=== PATIENT | male | born 1960 | race Caucasian/White ===

== ENCOUNTER → 2017-10-14 14:24 | Outpatient (CLI) | payer BC, SELFPAY ==
--- NOTE | 2017-10-14 14:26 | CA_ITS ---
PROCEDURE: 2-D M-mode and color Doppler study INDICATIONS FOR THE TEST: Chest pain COPD+ Heart Murmur Tobacco Smoking+ Palpitations Fatigue Syncope Edema Hypertension+Diabetes Mellitus Rheumatic Fever SOB WARD Obesity Hyperlipidemia Family History HD Additional History DIZZINESS, AFIB, CAD PATIENT INFORMATION HEIGHT: 71 WEIGHT:183 GENDER: Male B/P:125/72 2-D/M-MODE INTERPRETATION: 2-D MEASUREMENTS OBSERVED VALUES IN CMS Right Ventricular Dimension (RVDd) 2.8 Interventricular Septum (Thickness)(IVsd) 1.4 Left Ventricular Internal Dimensions(LVIDd) 5.1 Left Ventricular Posterior Wall (Thickness)(LVPWd) 1.2 Aortic Root 4.3 Aortic Cusp Separation 1.0 Left Atrial Dimensions (LAD) 4.6 2D 1. Left atrium is moderately enlarged, left ventricle is normal size, mild concentric left ventricular hypertrophy, visually estimated ejection fraction 50% with no obvious regional wall motion abnormality. 2. The right atrium and right ventricle are mildly enlarged with normal contractility. 3. The aortic valve is thickened and calcified, the leaflet morphology is not well visualized, its likely bicuspid aortic valve. There is restriction the leaflet mobility. 4. The mitral and tricuspid valve are grossly normal. 5. The pulmonic valve is poorly visualized. 6. No significant pericardial effusion noted. DOPPLER INTERROGATION: 1. The maximum aortic out flow velocity across the stented 2.5 m/s, resulting in a mean gradient across valve of 14 mmHg represents mild aortic stenosis, there is mild aortic insufficiency present. 2. The mitral inflow velocity within normal range, there is no mitral stenosis, there is mild mitral regurgitation seen, there is mild tricuspid regurgitation seen, tricuspid and jet velocity insufficient for calculation of the right ventricular systolic pressure, diastolic parameters are inconclusive. CONCLUSION: 1. Mildly enlarged left atrium, normal left ventricular size, mild concentric left ventricular hypertrophy, visually estimated ejection fraction 50% with no obvious regional wall motion abnormality. 2. Likely bicuspid aortic valve with mild stenosis and mild aortic insufficiency, if clinically indicated transesophageal echocardiogram is recommended for further evaluation. 3. Mild mitral and tricuspid regurgitation 4. No significant pericardial effusion noted.
== END ==
PROVIDERS: Family Provider Nurse Practitioner; PCP Family Medicine; Visit Provider Internal Medicine
DX: I77.810 Thoracic aortic ectasia (principal); I10 Essential (primary) hypertension
CPT/HCPCS: 93306

== ENCOUNTER → 2017-12-15 13:02 | Outpatient (CLI) | payer BC, SELFPAY ==
[2017-12-15 14:47] LABS: Anion Gap 17.3 mEq/L (5-15); Blood Urea Nitrogen 12 mg/dL (7-18); Calcium 8.9 mg/dL (8.5-10.1); Carbon Dioxide 25 mmol/L (21.0-32.0); Chloride 106 mmol/L (98-107); Creatinine,Serum 1.17 mg/dL (0.70-1.30); Estimated Glomerular Filt Rate 65 ml/min (>60); GFR (African American) 78 ML/MIN (>60); Glucose 160 mg/dL (74-106); Potassium 3.3 mmoL/L (3.5-5.1); Sodium 145 mmol/L (136-145)
== END ==
PROVIDERS: Family Provider Nurse Practitioner; PCP Family Medicine; Visit Provider Internal Medicine
DX: I10 Essential (primary) hypertension (principal); I35.1 Nonrheumatic aortic (valve) insufficiency; I71.4 Abdominal aortic aneurysm, without rupture; I77.810 Thoracic aortic ectasia; I77.89 Other specified disorders of arteries and arterioles
CPT/HCPCS: 36415; 80048

== ENCOUNTER → 2018-08-23 06:13 | Outpatient (CLI) | payer BC, SELFPAY ==
--- NOTE | 2018-08-23 06:29 | CT_ITS ---
CT chest w con HISTORY: Chest pain, mid chest pain ITS.REASON: z ORDERING PHYSICIAN: Anton Jensen MD PATIENT AGE: 57 years COMPARISON: 09/06/2017 TECHNIQUE: Axial images obtained following the administration of 75 mL of Optiray 350 . Sagittal, and coronal reformatted images are also generated and reviewed. All CT scans at the facility use one or more dose reduction, viz: automated exposure control, ma/kV adjustment per patient size (including targeted exams where dose is matched to indication, i.e. head), or iterative reconstruction technique. FINDINGS: There are a few small mediastinal lymph nodes. No enlarged nodes are evident. There is mild fusiform dilatation of the ascending aorta at 4.6 cm similar to the previous exam. No evidence of aortic dissection. No evidence of central pulmonary embolus. There are coronary artery calcifications present and there is some calcification of the aortic root along the left lateral aspect. Normal heart size without evidence of pericardial effusion. No suspicious pulmonary nodules. No infiltrates or effusions. Mild degenerative changes thoracic spine. There are scattered isodense lesions within the liver which may represent hepatic cysts. IMPRESSION: 1. Overall stable CT appearance of the chest. 2. Mild fusiform aneurysmal dilatation of the ascending aorta at 4.6 cm without evidence of dissection not significantly changed. 3. Coronary artery calcifications are noted.
--- NOTE | 2018-08-23 06:29 | NM_ITS ---
CARDIOLITE SPECT MYOCARDIAL PERFUSION LEXISCAN, REST AND STRESS: [facility] REVIEW QGS EF AND WALL MOTION EVALUATION: QPS - PERFUSION EVALUATION HISTORY: c.p., sob, aaa DOSE: 10.91 mCi technetium 99m mibi intravenously at rest followed by 31.2 mCi technetium 99m mibi following the intravenous ministration of 0.4 mg of Lexiscan. Resting blood pressure is 168/102. Stress blood pressure 146/93. FINDINGS: Ejection fraction is calculated to be 58%. Uniform myocardial activity with both stress and rest IMPRESSION: No scintigraphic evidence of Lexiscan-induced myocardial ischemia with normal ejection fraction normal wall motion
--- NOTE | 2018-08-23 08:23 | HMH.ITSHM ---
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 []HYDROCHLOROTHIAZIDE BISOPROLOL AMLODIPINE LISINOPRIL
== END ==
PROVIDERS: PCP Family Medicine; Visit Provider Internal Medicine Cardiovascular Disease
DX: R06.02 Shortness of breath (principal); R07.9 Chest pain, unspecified; I35.1 Nonrheumatic aortic (valve) insufficiency; I71.2 Thoracic aortic aneurysm, without rupture
CPT/HCPCS: 71260; 78452; 93017; A9502; J2785; Q9967

== ENCOUNTER → 2018-09-07 13:14 | Outpatient (CLI) | payer BC, SELFPAY | PROVIDERS: PCP Family Medicine; Visit Provider Internal Medicine Cardiovascular Disease | DX: G47.33 Obstructive sleep apnea (adult) (pediatric) (principal); I10 Essential (primary) hypertension; I25.10 Atherosclerotic heart disease of native coronary artery without angina pectoris; I34.0 Nonrheumatic mitral (valve) insufficiency; I35.0 Nonrheumatic aortic (valve) stenosis; I35.1 Nonrheumatic aortic (valve) insufficiency; I71.4 Abdominal aortic aneurysm, without rupture; I77.810 Thoracic aortic ectasia; I77.89 Other specified disorders of arteries and arterioles; R06.83 Snoring; R40.0 Somnolence; R53.83 Other fatigue | CPT/HCPCS: 95806 ==

== ENCOUNTER → 2018-09-22 10:23 | Outpatient (CLI) | payer BC, SELFPAY ==
[2018-09-22 11:55] LABS: Anion Gap 16.8 mEq/L (5-15); Blood Urea Nitrogen 15 mg/dL (7-18); Calcium 8.9 mg/dL (8.5-10.1); Carbon Dioxide 26 mmol/L (21.0-32.0); Chloride 105 mmol/L (98-107); Creatinine,Serum 1.08 mg/dL (0.70-1.30); Estimated Glomerular Filt Rate 71 ml/min (>60); GFR (African American) 86 ML/MIN (>60); Glucose 113 mg/dL (74-106); Potassium 3.8 mmoL/L (3.5-5.1); Sodium 144 mmol/L (136-145)
== END ==
PROVIDERS: Physician Assistant; Visit Provider Internal Medicine Cardiovascular Disease
DX: I10 Essential (primary) hypertension (principal)
CPT/HCPCS: 36415; 80048

== ENCOUNTER → 2019-02-14 07:42 | Outpatient (CLI) | payer BC, SELFPAY ==
--- NOTE | 2019-02-14 07:47 | XR_ITS ---
PROCEDURE: XR SHOULDER LT MIN 2V CLINICAL INDICATION: ACUTE LT SHOULDER PAIN COMPARISON: No exams were available for comparison FINDINGS: No fracture, dislocation, lytic change, or blastic change evident. No significant degenerative change IMPRESSION: Negative left shoulder Dictated by: Emory Thibodeaux MD 02/14/2019 11:34 Electronically signed by Emory Thibodeaux MD in [place] 02/14/2019 11:34
--- NOTE | 2019-02-14 08:00 | US_ITS ---
PROCEDURE: US ABDOMEN COMPLETE CLINICAL INDICATION: RT SIDE ABD PAIN Right-sided abdominal pain COMPARISON: CT ABDOMEN PELVIS W CON from 02/05/2019 FINDINGS: PANCREAS: The LIVER: Appears somewhat coarse heterogeneous echogenicity of the liver nonspecific. Hepatic cysts are present as noted on the CT scan. Only 3 however are demonstrated by ultrasound. The these measure a approximately 1 cm. There is appropriate direction of blood flow within a non dilated portal vein. RIGHT KIDNEY: Unremarkable. Normal size and echogenicity. No hydronephrosis LEFT KIDNEY: Unremarkable. Normal size and echogenicity. No hydronephrosis GALLBLADDER: The gallbladder is contracted with a thickened wall measuring up to 4 mm. No pericholecystic fluid or biliary dilatation is evident. Common bile duct is 3 mm. There may be a small polyp along the posterior wall of the gallbladder AORTA: No evidence of aneurysmal dilatation. SPLEEN: Borderline splenomegaly at 13 cm ASCITES: None demonstrated. IMPRESSION: Contracted gallbladder with slightly thickened wall with possible small polyp. Hepatic cysts Dictated by: Emory Thibodeaux MD 02/14/2019 16:15 Electronically signed by Emory Thibodeaux MD in [place] 02/14/2019 16:15
== END ==
PROVIDERS: PCP Family Medicine; Visit Provider Family Medicine
DX: R10.9 Unspecified abdominal pain (principal); M25.512 Pain in left shoulder
CPT/HCPCS: 73030; 76700

== ENCOUNTER → 2019-03-02 09:03 | Outpatient (CLI) | payer BC, SELFPAY ==
--- NOTE | 2019-03-02 09:15 | NM_ITS ---
PROCEDURE: NM HEPATOBILIARY W PHARM CLINICAL INDICATION: THICKENING OF WALL OF GALLBLADDER COMPARISON: No exams were available for comparison TECHNIQUE: 8.29 mCi of technetium 9 9 M Choletec was injected DOSE: 2.3 mcg of CCK was utilized for the ejection fraction FINDINGS: Homogeneous activity is present within the hepatic parenchyma. Activity is present in the gallbladder by 10 minutes. Activity is present in the small bowel by 30 minutes. The gallbladder ejection fraction is calculated to be 92 percent. CCK-The patient did not report pain or other symptoms during CCK infusion. IMPRESSION: Normal study with normal ejection fraction Dictated by: Dr. Collin Rod MD 03/02/2019 10:[address] Collin Rod MD in [place] 03/02/2019 10:48
--- NOTE | 2019-03-02 09:30 | HMH.ITSHM ---
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 []TRIAMTERENE LISINOPRIL BISOPROLOL AMLODIPINE
== END ==
PROVIDERS: PCP Family Medicine; Visit Provider Family Medicine
DX: K82.8 Other specified diseases of gallbladder (principal)
CPT/HCPCS: 78227; A9537; J2805

== ENCOUNTER → 2019-05-21 11:10 | Outpatient (POV) | payer BC, SELFPAY | PROVIDERS: PCP Family Medicine; Visit Provider Nurse Practitioner Family | DX: Z00.00 Encounter for general adult medical examination without abnormal findings (principal) ==

== ENCOUNTER 2019-12-02 13:29 | Emergency (ER) | payer BC, SELFPAY ==
[2019-12-02 13:40] VITALS: BP 141/102; PULSE 77; RESP 20; TEMP 37; O2SAT 98; BMI 32.6
[2019-12-02 13:51] LABS: UTC Influenza A Antigen Negative (Negative); UTC Influenza B Antigen Negative (Negative)
--- NOTE | 2019-12-02 14:09 | HMH.EDUTC ---
[facility] [place] Disposition Clinical Impression: Viral syndrome Sinusitis Qualifiers: Sinusitis location: unspecified location Chronicity: acute Recurrence: non-recurrent Qualified Code(s): J01.90 - Acute sinusitis, unspecified Disposition: Home, Self-Care Condition on Discharge: Good Instructions: Sinusitis, DI for Sinusitis, Preventing the Spread of Coronavirus Discharge Instructions Additional Instructions: Drink plenty of fluids. Take tylenol or ibuprofen for pain or fever. Take the medications as directed. Follow up with your regular doctor. GO TO THE ER FOR ANY WORSENING SYMPTOMS FOLLOW THE DIRECTIONS ON THE COVID-19 HAND OUT THAT WE GAVE YOU REGARDING SELF-ISOLATION UNTIL YOU KNOW YOUR COVID-19 RESULTS Prescriptions: Azithromycin [Z-Stephen 250mg Tab*] 250 mg PO UD DOSE PK #6 tab Transmission Status: Received by [email or web address] #[id number] Referrals: Maykel Salinas MD [Primary Care Provider] - Forms: Work/School Release Time of Disposition: 14:14 Medical Decision Making - Medical Records Medical records reviewed: No: I reviewed the patient's medical records. - Andrey Inquiry Pt receiving controlled substance: No Vital Signs: 12/02/19 13:40 12/02/19 14:17 Temperature 98.6 F 98.6 F Temperature Source Oral Pulse Rate 77 Pulse Rate [Right Brachial] 77 Respiratory Rate 20 20 Blood Pressure 141/102 H Blood Pressure [Right Arm] 141/102 H Blood Pressure Mean [Right Arm] 115 Blood Pressure Source [Right Arm] Automatic Cuff Blood Pressure Position [Right Arm] Sitting 02 Sat by Pulse Oximetry 98 Oxygen Delivery Method Room Air - Lab Data Lab results reviewed: Yes: I reviewed the patient's lab results. Lab Results 12/02/19 13:40: Influenza Type A Ag Negative, Influenza Type B Ag Negative Orders (Tests/Meds): ORDERS Category Date Time Status Covid-19 Nasal PCR Sendout [facility] Stat [facility] 12/02/19 13:50 Received Covid-19 Nasal PCR Sendout [facility] Routine Lab 12/02/19 13:50 Received [facility] [place] HPI - General Stated complaint: muscle pain, chills, headache Time Seen by Provider: 12/02/19 13:45 Mode of Arrival: Ambulatory Source of Information: Patient Limitations: No Limitations Description of Symptoms (Recalled from Triage Doc. by RN): PATIENT C/O BODY ACHES, RUNNY NOSE X 3 DAYS HEENT Symptoms (Recalled from RN notes): Yes Resp Symptoms (Recalled from RN notes): No Skin Symptoms (Recalled from RN notes): No MS Symptoms (Recalled from RN notes): Yes Functional Status (Recalled from RN notes): WNL - History of Present Illness Provider Complaint: He c/o chilling, feeling bad, having a dry cough for the past 1 day. He works a [employer]. He doesn't think that he has been exposed to COVID-19, but he has been around people at work. - Related Data Previous Rx's Medication Instructions Recorded amlodipine 10 mg tablet 10 mg PO DAILY #30 tab 12/14/18 triamterene 37.5 1 tab PO DAILY #90 tab 12/14/18 mg-hydrochlorothiazide 25 mg tablet lisinopril 40 mg tablet 40 mg PO DAILY #30 tab 06/04/19 bisoprolol fumarate 10 mg tablet 20 mg PO DAILY #60 tab 06/07/19 Azithromycin [Z-Stephen 250mg Tab*] 250 mg PO UD DOSE PK #6 tab 12/02/19 Allergies Allergy/AdvReac Type Severity Reaction Status Date / Time No Known Allergies Allergy Verified 03/19/19 13:28 - Worker's Comp Is this a Worker's Comp case?: No [facility] History - Hepatitis A Screen Drug use history?: No High risk sexual behaviors?: No History of sexually transmitted infection?: No Currently employed?: No Childcare worker?: No Do you have indoor plumbing?: Yes Do you have electricity?: Yes Attestation statement:: This patient has been screened for Hepatitis A risk factors. I have reviewed the patient's past medical history: Yes Medical History: Reports:: Anxiety, Depression, Hyperlipidemia, Hypertension, Kidney Stones Denies:: Cancer, Diabetes Mellitus Type 1, Diabetes Mellitus Type 2, Seizures Other Medical History: Repor
[2019-12-02 14:17] VITALS: BP 141/102; PULSE 77; RESP 20; TEMP 37; O2SAT 98
[2019-12-03 10:03] LABS: Covid-19 Nasal PCR Sendout UK NOT DETECTED
== END 2019-12-02 14:20 | disposition home or self-care (01) ==
PROVIDERS: Emergency Provider Nurse Practitioner Family; PCP Family Medicine
DX: J01.90 Acute sinusitis, unspecified (principal); B34.9 Viral infection, unspecified; Z20.828 Contact with and (suspected) exposure to other viral communicable diseases; I10 Essential (primary) hypertension; E78.5 Hyperlipidemia, unspecified; F41.8 Other specified anxiety disorders; Z87.442 Personal history of urinary calculi; Z79.899 Other long term (current) drug therapy
CPT/HCPCS: 87804; 99202; U0003; U0004

== ENCOUNTER → 2020-04-25 07:36 | Outpatient (CLI) | payer BC, SELFPAY ==
--- NOTE | 2020-04-25 07:36 | CA_ITS ---
APPROVED REPORT EXAM: Comprehensive 2D, Doppler, and color-flow Echocardiogram Mixer And Scaler: Doreen Shore CRT Ht: 5 ft 11 in Wt: 183lbs BSA: 2.03 BP: 110/70 mmHg Indications: Shortness of Breath, BAV, KEILA 2018, AFIB, CAD, WU, AAA COPD, Diabetes, Hyperlipidemia, Hypertension/HDD 2D Dimensions LVOT 1.72 cm (M/F) 1.5-2.5 M-Mode Dimensions RVDd 3.62 cm (0.9-2.6) LA Diam 4.04 cm (1.9-4.0) LVDd 6.48 cm (3.5-5.7) Ao Diam 3.84 cm (2.0-3.7) LVDs 5.37 cm (3.5-5.7) IVSd 1.74 cm (0.6-1.1) PWd 0.94 cm (0.6-1.1) EF (Teich) 35.00% FS 17.10% EDV (Teich) 214.50 mL ESV (Teich) 139.50 mL LV Diastology E Decel Time 417.00 (160-240 msec) E/A Ratio 1.31 MED E' 7.10 (< 7 cm/sec) MED A' 7.40 cm/s E'/MED E' Ratio 12.56 (>14) LAT E' 5.80 (<10 cm/sec) LAT A' 9.40 cm/s E/LAT E' Ratio 15.38 (>14) Aortic Valve LVOT Max 141.00 (70-110 cm/s) LVOT VTI 32.25 cm AoV Peak Pedro. 225.00 (50-130 cm/s) AO Peak GR. 20.20 mmHg AO Mean GR. 11.20 (<5 mmHg) AO VTI 47.49 (18-25 cm) AGGIE (VTI) 1.58 (2.5-4.5 cm2) Mitral Valve MV E Max Pedro. 89.00 (40-130 cm/s) MV A Velocity 68.00 (40-130 cm/s) E/A Ratio 1.31 MV Decel. Time 417.00 (160-240 ms) MV PHT 122.00 ms Pulmonary Valve PV Peak Velocity 115.00 (50-150 cm/s) Tricuspid Valve TR P. Velocity 237.00 cm/s RAP Estimate 10.00 mmHg RVSP 32.50 mmHg Left Ventricle Left atrium is mildly enlarged, left ventricle is normal size, left ventricle wall thickness is upper limit of normal, there is preserved left ventricular systolic function, visually estimated ejection fraction 55% with no regional wall motion abnormality. Grade 1 diastolic dysfunction seen without tissue Doppler evidence of raise left atrial pressure. Right Ventricle Right atrium and right ventricle are mildly enlarged with normal contractility. Aortic Valve Aortic valve leaflets are not well visualized, it appears to be bicuspid, the mean gradient across valve is 12 mmHg, represents mild aortic stenosis, there is no significant aortic insufficiency. Mitral Valve Mitral valve leaflets are grossly normal, there is mild mitral regurgitation. Tricuspid Valve Tricuspid valve grossly normal, there is mild tricuspid regurgitation. Tricuspid regurgitation jet velocity is inadequate for calculation of the right ventricular systolic pressure. Pulmonic Valve Pulmonic valve is poorly visualized. Great Vessels Aortic root is normal size, ascending aorta above sinotubular junction is enlarged measuring 4.1 cm. Pericardium No significant pericardial effusion noted. Conclusion 1. Mild biatrial enlargement, normal left ventricular size, visually estimated ejection fraction 55% with no regional wall motion abnormality, grade 1 diastolic dysfunction seen without tissue Doppler evidence of raise left atrial pressure. 2. Likely bicuspid aortic valve with mild aortic stenosis, there is no aortic insufficiency, ascending aorta above sinotubular junction is enlarged measuring 4.1 cm. 3. Mildly enlarged right ventricle with normal contractility. 4. Mild mitral and tricuspid regurgitation. 5. No significant pericardial effusion noted. Electronically signed by : Anton Jensen, 04/25/2020 10:30:45
[2020-04-25 09:03] LABS: Basophils # 0.1 K/mm3 (0-0.2); Basophils % 0.9 % (0.1-2.0); Eosinophils # 0.3 K/mm3 (0.0-0.4); Eosinophils % 3.6 % (0.1-12.0); Hematocrit 53.2 % (42.0-52.0); Lymphocytes # 1.6 K/mm3 (0.7-4.5); Lymphocytes % 22.9 % (10-50); Mean Corpuscular HGB Conc 34.2 g/dL (31.8-35.4); Mean Corpuscular Hemoglobin 31.2 pg (27.0-31.2); Mean Corpuscular Volume 91.4 fl (80-94); Mean Platelet Volume 9.1 fl (7.4-10.4); Monocytes # 0.4 K/mm3 (0.1-1.0); Neutrophils # 4.6 K/mm3 (1.8-7.8); Neutrophils % 66.6 % (37.0-80.0); Platelet Count 258 K/mm3 (142-424); Red Blood Count 5.81 M/mm3 (4.60-6.20); Red Cell Distribution Width 13.2 % (11.5-17.5); White Blood Count 6.9 K/mm3 (4.8-10.8)
[2020-04-25 10:57] LABS: Chloride 106 mmol/L (98-107); Potassium 4.5 mmoL/L (3.5-5.1); Sodium 142 mmol/L (136-145)
[2020-04-25 10:59] LABS: Bilirubin,Unconjugated 0.6 mg/dL (0.0-1.1); Blood Urea Nitrogen 19 mg/dl (9-20); Estimated Glomerular Filt Rate 77 ml/min (>60); GFR (African American) 93 ML/MIN (>60)
[2020-04-25 11:00] LABS: Alanine Aminotransferase 30 U/L (12-78); Albumin Level 4.6 g/dl (3.5-5.0); Alkaline Phosphatase 102 U/L (38-126); Anion Gap 12.5 mEq/L (5-15); Aspartate Amino Transferase 24 U/L (17-59); Bilirubin,Direct 0.2 mg/dl (0.0-0.4); Bilirubin,Indirect 0.6 mg/dL (0.0-0.9); Bilirubin,Total 0.8 mg/dl (0.2-1.3); Calcium 9.9 mg/dl (8.4-10.2); Carbon Dioxide 28 mmol/L (22.0-30.0); Chol/HDL Ratio 4.7 (1-3.5); Cholesterol 203 mg/dl (140-200); Glucose 105 mg/dl (74-100); HDL Cholesterol 43 mg/dl (40-60); Total Protein,Serum 7.5 g/dl (6.3-8.2); Triglycerides 213 mg/dl (30-150); VLDL Cholesterol 43 mg/dL (0-40)
[2020-04-25 11:11] LABS: Direct LDL Cholesterol 133.24 mg/dL (100-129); Hemoglobin 18.2 g/dL (14.1-18.0)
== END ==
PROVIDERS: PCP Family Medicine; Visit Provider Urology
DX: I34.0 Nonrheumatic mitral (valve) insufficiency (principal); I35.0 Nonrheumatic aortic (valve) stenosis; I71.4 Abdominal aortic aneurysm, without rupture; I10 Essential (primary) hypertension
CPT/HCPCS: 36415; 80048; 80061; 80076; 85025; 93306

== ENCOUNTER 2020-05-06 13:30 | Outpatient (CLI) | payer BC, SELFPAY ==
[2020-05-06 14:19] LABS: Basophils # 0.1 K/mm3 (0-0.2); Basophils % 0.7 % (0.1-2.0); Eosinophils # 0.3 K/mm3 (0.0-0.4); Eosinophils % 4.1 % (0.1-12.0); Hematocrit 51.1 % (42.0-52.0); Hemoglobin 17.4 g/dL (14.1-18.0); Lymphocytes # 1.8 K/mm3 (0.7-4.5); Lymphocytes % 22.3 % (10-50); Mean Corpuscular HGB Conc 34.1 g/dL (31.8-35.4); Mean Corpuscular Hemoglobin 31.3 pg (27.0-31.2); Mean Corpuscular Volume 91.8 fl (80-94); Mean Platelet Volume 8.9 fl (7.4-10.4); Monocytes # 0.5 K/mm3 (0.1-1.0); Monocytes % 5.8 % (1.7-9.3); Neutrophils # 5.3 K/mm3 (1.8-7.8); Neutrophils % 67.1 % (37.0-80.0); Platelet Count 229 K/mm3 (142-424); Red Blood Count 5.57 M/mm3 (4.60-6.20); Red Cell Distribution Width 12.7 % (11.5-17.5); White Blood Count 7.9 K/mm3 (4.8-10.8)
[2020-05-06 14:48] VITALS: BP 146/99; PULSE 64; RESP 18
--- NOTE | 2020-05-06 14:48 | PC.NURSE ---
1448-pt was here for labs and therapeutic phlebotomy; pt;s hgb 17.4; pt had 250ml phlebotomized off.
== END 2020-05-06 14:48 | disposition home or self-care (01) ==
LOC: INF 15:05
PROVIDERS: Visit Provider Urology
DX: D45 Polycythemia vera (principal)
CPT/HCPCS: 85025; 99195

== ENCOUNTER → 2020-05-09 07:46 | Outpatient (CLI) | payer BC, SELFPAY ==
--- NOTE | 2020-05-09 07:46 | CA_ITS ---
APPROVED REPORT Lobster Catcher: Tiffanie Bullard RVT Study Quality: Good Indications: malignant htn/polycythemia Risk Factors Hypertension Renal Artery Doppler Origin (R) 115.6/ cm/sec Proximal (R) 112.2/ cm/sec Mid (R) 92.5/ cm/sec Distal (R) 117.0/ cm/sec Renal Aorta Ratio (R) 0.97 Segmental A. (R) 36.2/16.4 cm/sec RI: 0.54 Segmental A. Sup (R) 35.1/15.4 cm/sec Segmental A. Mid (R) 36.2/16.4 cm/sec Segmental A. Inf (R) 23.8/5.2 cm/sec Origin (L) 95.4/ cm/sec Proximal (L) 98.8/ cm/sec Mid (L) 115.6/ cm/sec Distal (L) 74.1/ cm/sec Renal Aorta Ratio (L) 0.78 Segmental A. (L) 40.2/15.4 cm/sec RI: 0.61 Segmental A. Sup (L) 34.2/21.4 cm/sec Segmental A. Mid (L) 30.8/18.0 cm/sec Segmental A. Inf (L) 40.2/15.4 cm/sec Renal Measurements Kidney Size (R) 12.1x5.8 cm Cortical Thickness (R) 1.8 cm Kidney Size (L) 13.1x7.5 cm Cortical Thickness (L) 2.2 cm Findings Study suggests no evidence of stenosis of the bilateral renal arteries. Conclusion Study suggests no evidence of stenosis of the bilateral renal arteries. Electronically signed by : Emory Thibodeaux MD 05/09/2020 16:47:18
--- NOTE | 2020-05-09 08:33 | US_ITS ---
PROCEDURE: US KIDNEY CLINICAL INDICATION: I10 - Essential (primary) hypertension COMPARISON: US CA RENAL ARTERY DUPLEX from 05/09/2020 FINDINGS: The right kidney is [id number]. No hydronephrosis, cortical thinning, or renal mass or perinephric fluid collection is evident. The left kidney is [id number]. No hydronephrosis, cortical thinning, or renal mass or perinephric fluid collection is evident. No renal mass evident. The there is a small hyperechoic focus in the upper pole of the left kidney and may be due to small stone. Incidental note is made of a small hepatic cyst in the left hepatic lobe at 13 mm. IMPRESSION: No hydronephrosis. Possible left nephrolithiasis. Dictated by: Emory Thibodeaux MD 05/09/2020 17:11 Emory Thibodeaux MD in [place] 05/09/2020 17:11
== END ==
LOC: RT 07:46
PROVIDERS: PCP Family Medicine; Visit Provider Urology
DX: D45 Polycythemia vera (principal); I10 Essential (primary) hypertension; I25.10 Atherosclerotic heart disease of native coronary artery without angina pectoris; I34.0 Nonrheumatic mitral (valve) insufficiency; I35.0 Nonrheumatic aortic (valve) stenosis; I71.4 Abdominal aortic aneurysm, without rupture; G47.33 Obstructive sleep apnea (adult) (pediatric); Z99.89 Dependence on other enabling machines and devices
CPT/HCPCS: 76770; 93976

== ENCOUNTER → 2020-06-06 10:50 | Outpatient (CLI) | payer BC, SELFPAY ==
[2020-06-06 11:41] LABS: Basophils % 0.5 % (0.1-2.0); Eosinophils # 0.3 K/mm3 (0.0-0.4); Eosinophils % 3.7 % (0.1-12.0); Hematocrit 44.2 % (42.0-52.0); Hemoglobin 14.7 g/dL (14.1-18.0); Lymphocytes # 2.1 K/mm3 (0.7-4.5); Mean Corpuscular HGB Conc 33.2 g/dL (31.8-35.4); Mean Corpuscular Hemoglobin 30.6 pg (27.0-31.2); Mean Corpuscular Volume 92.1 fl (80-94); Mean Platelet Volume 8.1 fl (7.4-10.4); Monocytes # 0.7 K/mm3 (0.1-1.0); Neutrophils % 61.7 % (37.0-80.0); Platelet Count 276 K/mm3 (142-424); Red Cell Distribution Width 12.9 % (11.5-17.5); White Blood Count 8.2 K/mm3 (4.8-10.8)
[2020-06-06 11:55] LABS: Anion Gap 13.9 mEq/L (5-15); Blood Urea Nitrogen 17 mg/dl (9-20); Calcium 9.3 mg/dl (8.4-10.2); Carbon Dioxide 24 mmol/L (22.0-30.0); Chloride 106 mmol/L (98-107); Estimated Glomerular Filt Rate 87 ml/min (>60); GFR (African American) 105 ML/MIN (>60); Glucose 154 mg/dl (74-100); Potassium 3.9 mmoL/L (3.5-5.1); Sodium 140 mmol/L (136-145)
== END ==
PROVIDERS: Visit Provider Urology
DX: D45 Polycythemia vera (principal); I10 Essential (primary) hypertension
CPT/HCPCS: 36415; 80048; 85025

== ENCOUNTER 2021-01-02 13:27 | Emergency (ER) | payer BC, SELFPAY ==
[2021-01-02 13:45] VITALS: BP 180/110; PULSE 89; RESP 18; TEMP 37.7; O2SAT 95; BMI 32.5
[2021-01-02 14:15] VITALS: BP 168/114; PULSE 89; RESP 18; TEMP 37.7; O2SAT 97; BMI 32.5
[2021-01-02 14:22] LABS: Coronavirus 19, PCR Not Detected (NotDetected); Influenza A, PCR Not Detected (NotDetected); Influenza B, PCR Not Detected (NotDetected)
--- NOTE | 2021-01-02 14:53 | HMH.EDUTC ---
[facility] [place] Clinical Impression: Viral syndrome Disposition: Home, Self-Care Condition on Discharge: Good Instructions: DI for Viral Syndrome, DI for Fever (Symptom) -- Adult, DI for COVID-19 (Suspected or Confirmed ), Preventing the Spread of Coronavirus Discharge Instructions Additional Instructions: *Monitor Temp, Over the counter Motrin or Tylenol as directed/as needed Tylenol every 4 hours and Motrin every 6 hours (as long as your family doctor has told you that you can take it) for fever or pain. and straight to ER if unable to lower temp less than 101.0 after medication given *Warm salt water gargles may help to soothe the throat *Throat Lozenges *Warm fluids like tea with honey may help to soothe the throat *Sleep elevated *Humidifier/Vaporizer Follow up IMMEDIATELY for new or worsening symptoms or no Noticeable improvement over the next 48-72 hours. 911 for difficulty breathing or swallowing You were tested for today for COVID19 your test result should be back in the next 24-48 hours, you was given handout for instructions on how to log onto the [facility] portal to see your results if you have trouble logging on you may call for your results You was given a handout with instructions for Self Quarantine and Self isolation for while you wait on test results and what to do if they are positive If you are positive the Health Dept will be contacting you also Make sure to take your Vitamins Vit. C Vit D and Zinc if you can take them Referrals: Maykel Salinas MD [Primary Care Provider] - As needed Forms: Work/School Release Time of Disposition: 15:00 Medical Decision Making - Andrey Inquiry Pt receiving controlled substance: No Andrey was queried for this patient: No Vital Signs: 01/02/21 13:45 01/02/21 14:15 01/02/21 15:01 Temperature 99.9 F H 99.9 F H 99.9 F H Temperature Source Oral Oral Pulse Rate 85 Pulse Rate [Right Radial] 89 89 Respiratory Rate 18 18 18 Blood Pressure 148/108 H Blood Pressure [Left Arm] 180/110 H 168/114 H Blood Pressure Mean [Left Arm] 133 132 Blood Pressure Source [Left Arm] Automatic Cuff Blood Pressure Position [Left Arm] Sitting 02 Sat by Pulse Oximetry 95 97 Oxygen Delivery Method Room Air - Lab Data Lab results reviewed: Yes: I reviewed the patient's lab results. Lab Results 01/02/21 14:10: SARS-CoV-2 (PCR) Not detected, Influenza A Untype (PCR) Not detected, Influenza Type B (PCR) Not detected 01/02/21 14:59: Influenza Type A Ag Negative, Influenza Type B Ag Negative [facility] [place] HPI - General Stated complaint: chills, body aches, H/A, fever Time Seen by Provider: 01/02/21 14:53 Mode of Arrival: Ambulatory Source of Information: Patient Limitations: No Limitations Description of Symptoms (Recalled from Triage Doc. by RN): PT C/O COLD SWEATS, HOT FLASHES, BODY ACHES AND LOSS OF ENERGY. HEENT Symptoms (Recalled from RN notes): No Resp Symptoms (Recalled from RN notes): No Skin Symptoms (Recalled from RN notes): No MS Symptoms (Recalled from RN notes): No Functional Status (Recalled from RN notes): COLD SWEATS, HOT FLASHES, BODY ACHES AND LETHARGY - History of Present Illness Provider Complaint: Patient states that he is fully vaccinated but concerned that he may have COVID and wanted to get tested States that he has been having chills, body aches, fever, and feeling tired States that had covid a month or so back State that today when he was still feeling bad he came in to get checked - Related Data Previous Rx's Medication Instructions Recorded amlodipine 10 mg tablet 10 mg PO BID #60 tab 05/06/20 atorvastatin 20 mg tablet See Rx Instructions .ROUTE 09/04/20 .COMPLEX #30 tab lisinopril 40 mg tablet See Rx Instructions .ROUTE 10/15/20 .COMPLEX #30 tab triamterene 37.5 See Rx Instructions .ROUTE 10/15/20 mg-hydrochlorothiazide 25 mg tablet .COMPLEX #30 tab bisoprolol fumarate 10 mg tablet See Rx Instructions .ROUTE 12/15/20 .COMPL
[2021-01-02 15:00] LABS: UTC Influenza A Antigen Negative (Negative)
[2021-01-02 15:01] VITALS: BP 148/108; PULSE 85; RESP 18; TEMP 37.7
[2021-01-02 15:01] LABS: UTC Influenza B Antigen Negative (Negative)
== END 2021-01-02 15:12 | disposition home or self-care (01) ==
LOC: ER 13:49 → UTC 13:50
PROVIDERS: Emergency Provider Nurse Practitioner; PCP Family Medicine
DX: B34.9 Viral infection, unspecified (principal); R52 Pain, unspecified; R50.9 Fever, unspecified
CPT/HCPCS: 87804; 99202; C9803; G0463; U0003; U0005

== ENCOUNTER 2021-01-04 12:39 | Observation (INO) | payer BC, SELFPAY ==
[2021-01-04] VITALS (11 sets, daily range): BP systolic 134–174; BP diastolic 86–116; PULSE 72–102; RESP 16–18; TEMP 37.4–38.2; O2SAT 93–95; BMI 32.5
--- NOTE | 2021-01-04 12:56 | XR_ITS ---
PROCEDURE INFORMATION: Exam: XR Chest Exam date and time: 01/04/2021 12:56 PM Age: 60 years old Clinical indication: Shortness of breath; Patient HX: SOB -- covid symptoms but covid test negative; Additional info: SOA TECHNIQUE: Imaging protocol: XR of the chest. Views: 2 views. COMPARISON: CR XR CHEST 2V 02/05/2019 7:34 PM FINDINGS: Lungs: Opacity in left lower lobe may represent pneumonia.. Pleural spaces: Unremarkable. No pleural effusion. No pneumothorax. Heart/Mediastinum: Unremarkable. No cardiomegaly. Bones/joints: Unremarkable. IMPRESSION: Opacity in left lower lobe may represent pneumonia..
--- NOTE | 2021-01-04 12:59 | CT_ITS ---
PROCEDURE INFORMATION: Exam: CTA Chest With Contrast Exam date and time: 01/04/2021 12:59 PM Age: 60 years old Clinical indication: Pain; Patient HX: Checking for pe-- chest pressure, SOB , covid symptoms but he tested negative TECHNIQUE: Imaging protocol: Computed tomographic angiography of the chest with contrast. 3D rendering (Not supervised by radiologist): MIP and/or 3D reconstructed images were created by the technologist. Radiation optimization: All CT scans at this facility use at least one of these dose optimization techniques: automated exposure control; mA and/or kV adjustment per patient size (includes targeted exams where dose is matched to clinical indication); or iterative reconstruction. Contrast material: ISOVUE 370; Contrast volume: 70 ml; Contrast route: INTRAVENOUS (IV); COMPARISON: CHESTW CT chest w con 08/23/2018 11:21 AM FINDINGS: Pulmonary arteries: Small pulmonary emboli in the left lower lobe: Filling defects in small branches to the left lower lobe. For example series 2, image 207, 211. Aorta: Unruptured aneurysm of the ascending aorta 4.6 x 4.5 cm Lungs: Consolidation in the left lower lobe may represent pneumonia and/or pulmonary infarction.. Pleural spaces: Unremarkable. No pneumothorax. No pleural effusion. Heart: Unremarkable. No cardiomegaly. No pericardial effusion. Lymph nodes: Unremarkable. No enlarged lymph nodes. Liver: Multi multiple simple cysts in the liver. Some lesions are too small to characterize Bones/joints: Unremarkable. No acute fracture. Soft tissues: Unremarkable. IMPRESSION: 1. Small pulmonary emboli in the left lower lobe: Filling defects in small branches to the left lower lobe. For example series 2, image 207, 211. 2. Consolidation in the left lower lobe may represent pneumonia and/or pulmonary infarction..
--- NOTE | 2021-01-04 13:01 | HMH.EDGENADL ---
ED Disposition Clinical Impression: Acute kidney injury Pneumonia Qualifiers: Pneumonia type: due to unspecified organism Laterality: left Lung location: unspecified part of lung Qualified Code(s): J18.9 - Pneumonia, unspecified organism Pulmonary embolism Qualifiers: Pulmonary embolism type: unspecified Chronicity: acute Acute cor pulmonale presence: without acute cor pulmonale Qualified Code(s): I26.99 - Other pulmonary embolism without acute cor pulmonale Disposition: Admitted As Inpatient Condition on Discharge: Good - Critical Care Critical Care Time: No Attestation: On 01/04/21, the high probability of a clinically significant, sudden or life threatening deterioration of the following system(s) required my full and direct attention, intervention and personal management. The time I documented below is in addition to time spent performing reported procedures but includes the following listed in this critical care notation. Medical Decision Making - Medical Records Medical records reviewed: Yes: I reviewed the patient's medical records. - Andrey Inquiry Pt receiving controlled substance: No Vital Signs: 01/04/21 12:41 Temperature 99.3 F Temperature Source Oral Pulse Rate [Left Radial] 102 H Respiratory Rate 18 Blood Pressure [Right Arm] 136/113 H Blood Pressure Mean [Right Arm] 120 Blood Pressure Source [Right Arm] Automatic Cuff Blood Pressure Position [Right Arm] Sitting 02 Sat by Pulse Oximetry 93 L Oxygen Delivery Method Room Air - Lab Data Lab Results 01/04/21 12:55: Chlamy pneumoniae PCR Not detected, Adenovirus (PCR) Not detected, B. pertussis DNA (PCR) Not detected, Coronavirus OC43 (PCR) Not detected, Coronavirus HKU1 (PCR) Not detected, Coronavirus 229E (PCR) Not detected, SARS-CoV-2 (PCR) Not detected, Coronavirus NL63 (PCR) Not detected, Human Metapneumovir PCR Not detected, Influenza A (H1) PCR Not detected, Influ A (H1N1/09) PCR Not detected, Influenza A (H3) PCR Not detected, Influenza Type A (PCR) Not detected, Influenza Type B (PCR) Not detected, M. pneumoniae (PCR) Not detected, Parainfluenza 1 (PCR) Not detected, Parainfluenza 2 (PCR) Not detected, Parainfluenza 3 (PCR) Not detected, Parainfluenza 4 (PCR) Not detected, RSV (PCR) Not detected, Entero/Rhino (PCR) Not detected 01/04/21 12:55: WBC 14.0 H, RBC 5.55, Hgb 17.6, Hct 51.7, MCV 93.3, MCH 31.7 H, MCHC 34.0, RDW 13.5, Plt Count 263, MPV 8.7, Neut % (Auto) 90.4 H, Lymph % (Auto) 4.5 L, [place]ona % (Auto) 3.7, Eos % (Auto) 0.8, Baso % (Auto) 0.6, Neut # (Auto) 12.7 H, Lymph # (Auto) 0.6 L, Monona # (Auto) 0.5, Eos # (Auto) 0.1, Baso # (Auto) 0.1, Total Counted 100, Neutrophils % (Manual) 88 H, Band Neutrophils % 2.0, Lymphocytes % (Manual) 8 L, Monocytes % (Manual) 2, Platelet Estimate Normal, RBC Morphology Normal 01/04/21 12:55: Sodium 136, Potassium 3.8, Chloride 99, Carbon Dioxide 24, Anion Gap 16.8 H, BUN 19, Creatinine 1.40 H, Estimated Creat Clear 89, Estimated GFR 52 L, Est GFR ( Amer) 63, Glucose 184 H, Calcium 9.5, Troponin I 0.01 01/04/21 14:15: Urine Color Clarke, Urine Appearance Clear, Urine pH 6.5, Ur Specific [place] 1.015, Urine Protein 3+, Urine Glucose (UA) Negative, Urine Ketones Negative, Urine Blood 1+, Urine Nitrate Negative, Urine Bilirubin 1+ A, Urine Urobilinogen 1.0, Ur Leukocyte Esterase Negative, Urine RBC 3-5, Urine WBC Occasional, Ur Squamous Epith Cells Occasional, Urine Bacteria Trace 01/04/21 14:55: Lactate 1.2 Result diagrams: 01/04/21 12:55 01/04/21 12:55 Orders (Tests/Meds): ED MEDICATIONS Generic Name Dose Route Start Last Admin Trade Name Freq PRN Reason Stop Dose Admin Ceftriaxone Sodium 1 gm/ 50 mls @ 100 mls/hr 01/04/21 14:45 01/04/21 15:01 Sodium Chloride IV 01/18/21 14:44 100 mls/hr Q24H MICHAEL Administration Lactated Ringer's 1,000 mls @ 125 mls/hr 01/04/21 14:45 01/04/21 15:01 Lactated Ringer's 1000 Ml Bag IV 02/03/21 14:44 125 mls/hr .Q8H MICHAEL Administration [place]
--- NOTE | 2021-01-04 13:02 | ECG_ITS ---
APPROVED REPORT Exam: Resting ECG HR:92 bpm ECG Measurements Heart Rate 92 AXES ND 144 P 32 QRSd 84 QRS -3 QT 388 T 66 QTc 479 Conclusion Normal sinus rhythm Normal ECG Electronically signed by : Maykel Garcia MD 01/06/2021 10:58:15
[2021-01-04 13:07] LABS: Adenovirus,PCR Not Detected (NotDetected); Bordetella Pertussis Not Detected (NotDetected); Chlamydophila Pneumoniae, PCR Not Detected (NotDetected); Coronavirus 19, PCR Not Detected (NotDetected); Coronavirus 229E Not Detected (NotDetected); Coronavirus NL63 Not Detected (NotDetected); Coronavirus OC43 Not Detected (NotDetected); Coronovirus HKU1,PCR Not Detected (NotDetected); Human Metapneumovirus Not Detected (NotDetected); Influenza A, PCR Not Detected (NotDetected); Influenza AH1, 2009 Not Detected (NotDetected); Influenza AH1, PCR Not Detected (NotDetected); Influenza AH3,PCR Not Detected (NotDetected); Influenza B, PCR Not Detected (NotDetected); Mycoplasma Pneumoniae, PCR Not Detected (NotDetected); Parainfluenza 1, PCR Not Detected (NotDetected); Parainfluenza 2, PCR Not Detected (NotDetected); Parainfluenza 3, PCR Not Detected (NotDetected); Parainfluenza 4, PCR Not Detected (NotDetected); Respiratory Syncytial Virus Not Detected (NotDetected); Rhinovirus/Enterovirus Not Detected (NotDetected)
[2021-01-04 13:09] LABS: Basophils # 0.1 K/mm3 (0-0.2); Basophils % 0.6 % (0.1-2.0); Eosinophils # 0.1 K/mm3 (0.0-0.4); Eosinophils % 0.8 % (0.1-12.0); Hematocrit 51.7 % (42.0-52.0); Hemoglobin 17.6 g/dL (14.1-18.0); Lymphocytes # 0.6 K/mm3 (0.7-4.5); Lymphocytes % 4.5 % (10-50); Mean Corpuscular Hemoglobin 31.7 pg (27.0-31.2); Mean Corpuscular Volume 93.3 fl (80-94); Mean Platelet Volume 8.7 fl (7.4-10.4); Monocytes # 0.5 K/mm3 (0.1-1.0); Monocytes % 3.7 % (1.7-9.3); Neutrophils # 12.7 K/mm3 (1.8-7.8); Neutrophils % 90.4 % (37.0-80.0); Platelet Count 263 K/mm3 (142-424); Red Blood Count 5.55 M/mm3 (4.60-6.20); Red Cell Distribution Width 13.5 % (11.5-17.5)
[2021-01-04 13:11] LABS: MANUAL DIFFERENTIAL MANUAL DIFFERENTIAL (MANUAL DIFF)
[2021-01-04 13:12] LABS: Chloride 99 mmol/L (98-107)
[2021-01-04 13:13] LABS: Potassium 3.8 mmoL/L (3.5-5.1); Sodium 136 mmol/L (136-145)
[2021-01-04 13:16] LABS: Anion Gap 16.8 mEq/L (5-15); Blood Urea Nitrogen 19 mg/dl (9-20); Calcium 9.5 mg/dl (8.4-10.2); Carbon Dioxide 24 mmol/L (22.0-30.0); Creatinine Clearance Estimated 89 mL/min (50-200); Estimated Glomerular Filt Rate 52 ml/min (>60); GFR (African American) 63 ML/MIN (>60); Glucose 184 mg/dl (74-100)
[2021-01-04 13:24] LABS: Lymphocytes % 8 % (10-50); Monocytes % 2 % (2-9); Neutrophils % 88 % (42-76); Platelet Estimate Normal; RBC Morphology Normal; Total Cells Counted 100
[2021-01-04 13:29] LABS: Troponin I 0.01 ng/ml (0.00-0.034)
[2021-01-04 14:26] LABS: Microscopic, Urine URINE MICROSCOPIC (MICROSCOPIC)
[2021-01-04 14:28] LABS: Appearance,Urine CLEAR (Clear); Blood, Urine 1+ (Negative); Color,Urine ORANGE (Yellow); Glucose,Urine (UA) Negative (Negative); Ketones,Urine Negative (Negative); Leukocyte Esterase,Urine Negative (Negative); Nitrate,Urine Negative (Negative); PH,Urine 6.5 (5.0-8.5); Protein,Urine 3+ (Negative); Specific Gravity, Urine 1.015 (1.005-1.030)
[2021-01-04 14:33] LABS: Bilirubin,Urine 1+ (Negative)
--- NOTE | 2021-01-04 14:34 | PC.NURSE ---
ANNETTE DURON speaking with kd
[2021-01-04 14:40] LABS: Bacteria,Urine Trace /lpf; Squamous Epithelial Cell,Urine Occasional #/hpf (0-5); WBC,Urine Occasional #/hpf (0-3)
--- NOTE | 2021-01-04 14:46 | PC.NURSE ---
notified pump house operator of admission, states pt will be boarding in ER until a bed is available.
--- NOTE | 2021-01-04 14:57 | PC.NURSE ---
LACTIC AND CULTURES DRAWN
[2021-01-04 15:15] LABS: Lactic Acid 1.2 mmol/L (0.7-2.1)
[2021-01-04 17:15] LABS: Troponin I < 0.01 ng/ml (0.00-0.034)
--- NOTE | 2021-01-04 19:00 | PC.NURSE ---
recieved report from tana BLANC. pt is admitted but is boarding in er due to no bed @ this time
--- NOTE | 2021-01-04 20:00 | PC.NURSE ---
pt resting watching TV voiced no c/o call light within reach
--- NOTE | 2021-01-04 21:00 | PC.NURSE ---
pt given a pepsi and water @ this time.call light with in reach
--- NOTE | 2021-01-04 22:00 | PC.NURSE ---
pt sleeping quietly, call light with in reach
--- NOTE | 2021-01-04 23:00 | PC.NURSE ---
pt ambulated to BR in room, pt voiced no c/o @ this time. call light within reach
[2021-01-05 00:08] VITALS: BP 149/95; PULSE 89; O2SAT 96
--- NOTE | 2021-01-05 00:09 | PC.NURSE ---
pt placed in regular hospital bed. pt voiced no c/o, call light within reach
--- NOTE | 2021-01-05 01:04 | PC.NURSE ---
pt resting quietly VSS
--- NOTE | 2021-01-05 02:00 | PC.NURSE ---
pt resting quietly no c/o @ this time
--- NOTE | 2021-01-05 03:30 | CA_ITS ---
APPROVED REPORT Bilateral Lower Extremity Venous Study for DVT. Health Care / Medical Job Titles: CT Indications Pulmonary Embolism Shortness of breath PE Vein Imaging CFV (R): compressive, spontaneous, phasic, augmentation SFJ (R): compressive, spontaneous, phasic, augmentation FEM (R): compressive, spontaneous, phasic, augmentation POP (R): compressive, spontaneous, phasic, augmentation DFV (R): compressive, spontaneous, phasic, augmentation PTV (R): compressive, spontaneous, phasic, augmentation GSV (R): compressive, spontaneous, phasic, augmentation SSV (R): Not Visualized Peroneals (R):difficult to image GAS (R): compressive, spontaneous, phasic, augmentation CFV (L): compressive, spontaneous, phasic, augmentation SFJ (L): compressive, spontaneous, phasic, augmentation FEM (L): compressive, spontaneous, phasic, augmentation POP (L): compressive, spontaneous, phasic, augmentation DFV (L): compressive, spontaneous, phasic, augmentation PTV (L): compressive, spontaneous, phasic, augmentation GSV (L): compressive, spontaneous, phasic, augmentation SSV (L): Not Visualized Peroneals (L):difficult to image. GAS (L): compressive, spontaneous, phasic, augmentation Findings Bilateral venous negative for DVT/SVT. Vessels compressible, Bilateral peroneals difficult to image. Conclusion Bilateral venous negative for DVT/SVT. Vessels compressible, Bilateral peroneals difficult to image. Electronically signed by : Emory Thibodeaux MD 01/05/2021 17:20:30
--- NOTE | 2021-01-05 03:41 | PC.NURSE ---
pt ambulated to BR and received a bottle of water
[2021-01-05 04:18] VITALS: BP 150/91; PULSE 90; TEMP 37.8; O2SAT 94
--- NOTE | 2021-01-05 04:19 | PC.NURSE ---
pt resting quietly 4am vital signs obtained pt voiced no c/o @ this time
--- NOTE | 2021-01-05 05:12 | PC.NURSE ---
AM labs obtained @ this time
[2021-01-05 06:11] LABS: Basophils % 0.2 % (0.1-2.0); Eosinophils % 0.3 % (0.1-12.0); Hematocrit 44.6 % (42.0-52.0); Lymphocytes # 0.7 K/mm3 (0.7-4.5); Lymphocytes % 6.2 % (10-50); Mean Corpuscular HGB Conc 33.2 g/dL (31.8-35.4); Mean Corpuscular Hemoglobin 31.6 pg (27.0-31.2); Mean Platelet Volume 9.1 fl (7.4-10.4); Monocytes # 0.6 K/mm3 (0.1-1.0); Monocytes % 5.4 % (1.7-9.3); Neutrophils # 9.4 K/mm3 (1.8-7.8); Platelet Count 224 K/mm3 (142-424); Red Blood Count 4.69 M/mm3 (4.60-6.20); Red Cell Distribution Width 13.6 % (11.5-17.5); White Blood Count 10.7 K/mm3 (4.8-10.8)
[2021-01-05 06:17] LABS: MANUAL DIFFERENTIAL MANUAL DIFFERENTIAL (MANUAL DIFF)
[2021-01-05 06:21] LABS: Prothrombin Time 14.4 seconds (10.1-12.5)
[2021-01-05 06:25] LABS: Alanine Aminotransferase 16 U/L (12-78); Albumin Level 3.5 g/dl (3.5-5.0); Albumin/Globulin Ratio 1.1 (1.1-1.8); Alkaline Phosphatase 85 U/L (38-126); Anion Gap 11.4 mEq/L (5-15); Aspartate Amino Transferase 21 U/L (17-59); Bilirubin,Total 0.6 mg/dl (0.2-1.3); Blood Urea Nitrogen 17 mg/dl (9-20); Calcium 8.6 mg/dl (8.4-10.2); Carbon Dioxide 23 mmol/L (22.0-30.0); Chloride 102 mmol/L (98-107); Creatinine Clearance Estimated 124 mL/min (50-200); Estimated Glomerular Filt Rate 77 ml/min (>60); GFR (African American) 93 ML/MIN (>60); Globulin 3.3 g/dL (1.3-3.2); Glucose 184 mg/dl (74-100); Phosphorous 2.9 mg/dl (2.5-4.5); Potassium 3.4 mmoL/L (3.5-5.1); Sodium 133 mmol/L (136-145); Total Protein,Serum 6.8 g/dl (6.3-8.2)
[2021-01-05 07:20] LABS: Lymphocytes % 2 % (10-50); Monocytes % 4 % (2-9); Neutrophils % 94 % (42-76); Platelet Estimate Normal; Total Cells Counted 100
--- NOTE | 2021-01-05 07:32 | HMH.HPDC ---
General - General Admission date:: 01/04/21 Discharge date: 01/05/21 *Admission Date: 01/04/21 *Chief complaint: Flulike symptoms *History of present illness: 60-year-old male presented to the emergency department with flulike symptoms that been present for most of the previous week. Patient had visited the urgent treatment clinic earlier in the week and states he had had several Covid test throughout the week as well due to symptoms of fevers, chills, myalgias and mild cough. He denies shortness of breath or loss of smell or taste. Work-up in the emergency department revealed a left lower lobe pneumonia and in addition to this patient was found to have small subsegmental pulmonary emboli in the left lower lobe as well. Patient had a slight rise in creatinine from baseline of 0.9-1.4 and decision was made to admit for observation for mild acute kidney injury and treatment for pulmonary embolism. Patient received Lovenox subcutaneously in the emergency department as well as Xarelto 15 mg to begin oral anticoagulant for his pulmonary embolisms. This morning patient denies shortness of breath or hemoptysis. He denies any recent leg swelling, pain, discomfort or long car rides. He is unaware of any family history of DVTs. [facility] History I have reviewed the patient's past medical history: Yes Medical History: Reports:: Anxiety, Depression, Hyperlipidemia, Hypertension, Kidney Stones Denies:: Cancer, Diabetes Mellitus Type 1, Diabetes Mellitus Type 2, Seizures *Have you ever received a pneumonia vaccine?: No *Have you received a flu vaccine this season?: No Other Medical History: Reports: Other Laterality Cases: Bilateral: Carpal Tunnel Release Other Surgeries: Yes: No Previous Surgery, Colonoscopy, Other Amputation: No Fractures: No - *Social History Smoking Status: Never smoker Tobacco Type: smokeless tobacco Alcohol Intake: current Alcohol Intake Frequency:: a few times a week Substance Use Type: denies use *Occupational Status:: other, employed Housing: house Household Members: family *Travel in the last 8 weeks: None - Psychiatric History Pschychiatric History:: Reports:: Anxiety, Depression Family Hx:: Heart Attack, Coronary Artery Disease Review of Systems - Constitutional Reports body ache(s), Reports chills, Reports fever(s) - Eyes Denies change in vision - ENT Denies dizziness - *Cardiovascular Reports chest pain with activity, Reports leg pain with activity, Reports excessive sweating, Reports shortness of breath, Reports shortness of breath with activity, Reports generalized swelling, Denies chest pain, Denies chest pain at rest - *Respiratory Denies change in phlegm color, Denies chest congestion, Denies cough, Denies shortness of breath - *Gastrointestinal Denies abdominal pain, Denies belching, Denies bloating, Denies coffee ground vomit - *Genitourinary Denies difficulty urinating, Denies painful urination - *Musculoskeletal Denies abnormal walking, Denies joint pain - *Neurologic Denies abnormal walking, Denies behavioral changes Exam Vital signs and Labs for Last 24 Hours: Temp Pulse Resp BP Pulse Ox 100.0 F H 90 16 150/91 H 94 L 01/05/21 04:18 01/05/21 04:18 01/04/21 18:00 01/05/21 04:18 01/05/21 04:18 Laboratory Results - last 24 hr 01/04/21 12:55: Chlamy pneumoniae PCR Not detected, Adenovirus (PCR) Not detected, B. pertussis DNA (PCR) Not detected, Coronavirus OC43 (PCR) Not detected, Coronavirus HKU1 (PCR) Not detected, Coronavirus 229E (PCR) Not detected, SARS-CoV-2 (PCR) Not detected, Coronavirus NL63 (PCR) Not detected, Human Metapneumovir PCR Not detected, Influenza A (H1) PCR Not detected, Influ A (H1N1/09) PCR Not detected, Influenza A (H3) PCR Not detected, Influenza Type A (PCR) Not detected, Influenza Type B (PCR) Not detected, M. pneumoniae (PCR) Not detected, Parainfluenza 1 (PCR) Not detected, Parainfluenza 2 (PCR) Not detected, Parainfluenza 3 (PCR) Not detected
[2021-01-05 08:00] VITALS: TEMP 39.6
[2021-01-05 08:01] VITALS: BP 154/98; PULSE 68; RESP 16; O2SAT 93
[2021-01-05 08:14] LABS: Hemoglobin 14.8 g/dL (14.1-18.0)
[2021-01-05 09:44] VITALS: BP 154/95; PULSE 61; RESP 20; TEMP 37.7; O2SAT 98
== END 2021-01-05 09:47 | disposition home or self-care (01) ==
LOC: ER 14:59 → 2ND 15:02
PROVIDERS: Admitting Provider Internal Medicine Adolescent Medicine; Emergency Provider Emergency Medicine; PCP Family Medicine; Visit Provider Family Medicine
DX: I26.99 Other pulmonary embolism without acute cor pulmonale (principal); N17.9 Acute kidney failure, unspecified; I10 Essential (primary) hypertension; J18.9 Pneumonia, unspecified organism; Z79.899 Other long term (current) drug therapy; Z20.822 Contact with and (suspected) exposure to COVID-19
CPT/HCPCS: 71046; 71275; 80048; 80053; 81001; 83605; 83735; 84100; 84484; 85007; 85025; 85610; 87040; 87077; 87186; 87581; 87632; 87798; 93005; 93970; 96365; 96375; 99284; C9803; G0378; Q9967; U0003; U0005

== ENCOUNTER → 2021-03-09 11:24 | Outpatient (CLI) | payer BC, SELFPAY | PROVIDERS: Visit Provider Surgery | DX: Z01.812 Encounter for preprocedural laboratory examination (principal); Z20.822 Contact with and (suspected) exposure to COVID-19; Z12.11 Encounter for screening for malignant neoplasm of colon | CPT/HCPCS: C9803; U0003; U0005 ==

== ENCOUNTER 2021-03-11 10:27 | Day surgery (SDC) | payer BC, SELFPAY ==
[2021-03-06 10:27] VITALS: BMI 33.9
[2021-03-11 10:42] VITALS: BP 174/103; PULSE 65; RESP 18; TEMP 37; O2SAT 98
[2021-03-11 11:10] VITALS: O2SAT 98
[2021-03-11 12:00] VITALS: BP 102/71; PULSE 60; RESP 16; TEMP 36.2; O2SAT 93
--- NOTE | 2021-03-11 12:00 | HMH.SCOPE ---
- Procedure: Date: 03/11/21 Patient Date of :: 1960 Procedure Performed:: Colonoscopy to terminal ileum with polypectomy by snare and biopsy forceps Indications:: 60-year-old male referred by Dr. Cordova's office for screening colonoscopy. Patient does however have some symptoms of some fecal urgency and frequency. He previously had been seen in my office with some symptoms of vague abdominal pain and malodorous flatulence. I had recommended gastroenterology referral at that time. Patient states that he had been scheduled for a colonoscopy but this was unable to be performed due to Covid. Performing Provider:: Low Luke MD Referring Provider:: Joseph Cordova MD Sedation:: MAC sedation Procedure:: Patient was taken to endoscopy procedure room. He was positioned lateral decubitus position. Adequate intravenous sedation was achieved with anesthesia titration of propofol. Variable stiffness Olympus colonoscope was inserted via the anus. Was advanced to the cecum with some minor difficulty due to some floppiness and redundancy of the sigmoid colon. Ileocecal valve and appendiceal orifice were clearly identified. Colonoscope was briefly advanced into the terminal ileum which appeared grossly normal. Colonic preparation was good and visualization was good. Colonoscope was slowly withdrawn through the colon with careful surveillance. At the hepatic flexure there is a small polyp removed with cold snare. In the descending colon there was a small polyp removed with cold snare. In the proximal sigmoid colon there is a small polyp removed with cold snare. In the mid sigmoid colon there is a polyp removed with biopsy forceps. In the distal sigmoid colon there is a small polyp removed with cold snare. Rectosigmoid revealed several hyperplastic appearing polyps. Larger of these were removed and sampled with biopsy forceps. Retroflexion within the rectum revealed no evidence of any pathologic internal hemorrhoids. Colonoscope was withdrawn. Findings:: Polyps as noted above Recommendations:: Follow-up colonoscopy pending pathology. Likely 3 to 5 years Complications:: None immediately apparent Estimated blood obtained (mL): 2
[2021-03-11 12:10] VITALS: BP 117/72; PULSE 53; RESP 16; O2SAT 94
--- NOTE | 2021-03-11 12:11 | HMH.ANESCL ---
[facility] Anesthesia Checklist - Structural Data Admitted From: Home Planned Operative Procedure/s: colonoscopy Consent for Planned Operative Procedure(s) Verified: Yes - Additional verifications Anesthesia Reactions: No - Airway Assessment C-Spine Mobility Assessed: Yes TMJ Mobility Assessed: Yes Dentition: Good Dentition - Neurological Assessment Level of Consciousness: Awake, Alert, Appropriate - Anesthesia Plan Anesthesia Risk discussed: Yes Anesthesia Plan: Verified ASA Class: II Anesthesia Type: MAC [facility] History I have reviewed the patient's past medical history: Yes Medical History: Reports:: Anxiety, Depression, Hyperlipidemia, Hypertension, Kidney Stones Denies:: Cancer, Diabetes Mellitus Type 1, Diabetes Mellitus Type 2, Internal Pacemaker, MRSA, Seizures *Have you ever received a pneumonia vaccine?: No *Have you received a flu vaccine this season?: No Other Medical History: Reports: Other Anesthesia experience/problems:: none Laterality Cases: Bilateral: Carpal Tunnel Release Other Surgeries: Yes: No Previous Surgery, Colonoscopy, Other. No: Pacemaker Amputation: No Fractures: No - *Social History Last grade of school completed: High school graduate Smoking Status: Never smoker Tobacco Type: smokeless tobacco Alcohol Intake: never Alcohol Intake Frequency:: a few times a week Substance Use Type: denies use *Occupational Status:: employed Housing: house Household Members: spouse, children *Travel in the last 8 weeks: None - Psychiatric History Pschychiatric History:: Reports:: Anxiety, Depression Family Hx:: Hypertension
[2021-03-11 12:20] VITALS: BP 118/78; PULSE 59; RESP 16; O2SAT 96
[2021-03-11 12:30] VITALS: BP 123/77; PULSE 51; RESP 16; O2SAT 94
== END 2021-03-11 12:30 | disposition home or self-care (01) ==
LOC: OUTP 10:28
PROVIDERS: PCP Family Medicine; Visit Provider Surgery
PROC: 0DJD8ZZ Inspection of Lower Intestinal Tract, Via Natural or Artificial Opening Endoscopic (ICD-10-PCS; CPT 45385; principal; 2021-03-11 11:30)
DX: Z12.11 Encounter for screening for malignant neoplasm of colon (principal); K63.5 Polyp of colon; F41.9 Anxiety disorder, unspecified; F32.A Depression, unspecified; E78.5 Hyperlipidemia, unspecified; I10 Essential (primary) hypertension; Z87.442 Personal history of urinary calculi; Z82.49 Family history of ischemic heart disease and other diseases of the circulatory system; Z79.899 Other long term (current) drug therapy
CPT/HCPCS: 45385; 45380

== ENCOUNTER → 2021-03-30 11:44 | Outpatient (CLI) | payer BC, SELFPAY ==
[2021-03-30 12:04] LABS: Basophils # 0.1 K/mm3 (0-0.2); Basophils % 1.3 % (0.1-2.0); Eosinophils # 0.1 K/mm3 (0.0-0.4); Eosinophils % 2.2 % (0.1-12.0); Hematocrit 51.4 % (42.0-52.0); Hemoglobin 17.2 g/dL (14.1-18.0); Lymphocytes # 1.7 K/mm3 (0.7-4.5); Lymphocytes % 25.4 % (10-50); Mean Corpuscular HGB Conc 33.4 g/dL (31.8-35.4); Mean Corpuscular Hemoglobin 30.1 pg (27.0-31.2); Mean Corpuscular Volume 90.1 fl (80-94); Mean Platelet Volume 8.9 fl (7.4-10.4); Monocytes # 0.5 K/mm3 (0.1-1.0); Monocytes % 6.8 % (1.7-9.3); Neutrophils # 4.3 K/mm3 (1.8-7.8); Neutrophils % 64.3 % (37.0-80.0); Platelet Count 286 K/mm3 (142-424); Red Cell Distribution Width 15.1 % (11.5-17.5); White Blood Count 6.7 K/mm3 (4.8-10.8)
[2021-03-30 13:05] LABS: Alanine Aminotransferase 29 U/L (12-78); Albumin Level 4.5 g/dl (3.5-5.0); Alkaline Phosphatase 119 U/L (38-126); Anion Gap 13.1 mEq/L (5-15); Aspartate Amino Transferase 33 U/L (17-59); Bilirubin,Direct 0.2 mg/dl (0.0-0.4); Bilirubin,Indirect 0.5 mg/dL (0.0-0.9); Bilirubin,Total 0.7 mg/dl (0.2-1.3); Bilirubin,Unconjugated 0.5 mg/dL (0.0-1.1); Blood Urea Nitrogen 12 mg/dl (9-20); Carbon Dioxide 28 mmol/L (22.0-30.0); Chloride 101 mmol/L (98-107); Chol/HDL Ratio 5.8 (1-3.5); Cholesterol 269 mg/dl (140-200); Estimated Glomerular Filt Rate 87 ml/min (>60); GFR (African American) 105 ML/MIN (>60); Glucose 137 mg/dl (74-100); HDL Cholesterol 46 mg/dl (40-60); Potassium 4.1 mmoL/L (3.5-5.1); Sodium 138 mmol/L (136-145); Total Protein,Serum 7.5 g/dl (6.3-8.2)
[2021-03-30 13:06] LABS: Triglycerides 490 mg/dl (30-150)
[2021-03-30 13:16] LABS: Direct LDL Cholesterol 158.89 mg/dL (100-129)
[2021-03-30 13:21] LABS: Free T4 (Free Thyroxine) 0.75 ng/dl (0.78-2.19)
[2021-03-30 13:36] LABS: Thyroid Stimulating Hormone 1.89 uIU/mL (0.465-4.68)
== END ==
PROVIDERS: Visit Provider Urology
DX: I25.10 Atherosclerotic heart disease of native coronary artery without angina pectoris (principal); I10 Essential (primary) hypertension; D45 Polycythemia vera; I34.0 Nonrheumatic mitral (valve) insufficiency; I35.0 Nonrheumatic aortic (valve) stenosis; I35.1 Nonrheumatic aortic (valve) insufficiency; I77.810 Thoracic aortic ectasia; I77.89 Other specified disorders of arteries and arterioles
CPT/HCPCS: 36415; 80048; 80061; 80076; 84439; 84443; 85025

== ENCOUNTER 2021-04-19 11:08 | Emergency (ER) | payer BC, SELFPAY ==
[2021-04-19 11:23] VITALS: BP 0/0; PULSE 0; RESP 0; TEMP -17.7; TEMP 0
== END 2021-04-19 11:24 | disposition left against medical advice (07) ==
LOC: UTC 11:09
PROVIDERS: Emergency Provider Nurse Practitioner Family; PCP Family Medicine
DX: Z53.21 Procedure and treatment not carried out due to patient leaving prior to being seen by health care provider (principal)

== ENCOUNTER → 2021-04-19 11:40 | Outpatient (CLI) | payer BC, SELFPAY | PROVIDERS: Visit Provider Nurse Practitioner Family | DX: U07.1 COVID-19 (principal) | CPT/HCPCS: C9803; U0003; U0005 ==

== ENCOUNTER → 2021-06-16 08:00 | Outpatient (CLI) | payer BC, SELFPAY ==
[2021-06-16 08:37] LABS: Basophils # 0.1 K/mm3 (0-0.2); Eosinophils # 0.3 K/mm3 (0.0-0.4); Eosinophils % 6.4 % (0.1-12.0); Hematocrit 44.3 % (42.0-52.0); Hemoglobin 14.6 g/dL (14.1-18.0); Lymphocytes % 39.4 % (10-50); Mean Corpuscular Hemoglobin 30.8 pg (27.0-31.2); Mean Corpuscular Volume 93.5 fl (80-94); Mean Platelet Volume 9.2 fl (7.4-10.4); Monocytes # 0.3 K/mm3 (0.1-1.0); Monocytes % 6.5 % (1.7-9.3); Neutrophils # 2.3 K/mm3 (1.8-7.8); Neutrophils % 45.8 % (37.0-80.0); Platelet Count 274 K/mm3 (142-424); Red Blood Count 4.74 M/mm3 (4.60-6.20); Red Cell Distribution Width 14.9 % (11.5-17.5); White Blood Count 5.1 K/mm3 (4.8-10.8)
[2021-06-16 09:36] LABS: Alanine Aminotransferase 24 U/L (12-78); Albumin Level 4.4 g/dl (3.5-5.0); Alkaline Phosphatase 87 U/L (38-126); Anion Gap 14.6 mEq/L (5-15); Aspartate Amino Transferase 25 U/L (17-59); Bilirubin,Direct 0.2 mg/dl (0.0-0.4); Bilirubin,Indirect 0.4 mg/dL (0.0-0.9); Bilirubin,Total 0.6 mg/dl (0.2-1.3); Bilirubin,Unconjugated 0.3 mg/dL (0.0-1.1); Blood Urea Nitrogen 11 mg/dl (9-20); Calcium 8.8 mg/dl (8.4-10.2); Carbon Dioxide 25 mmol/L (22.0-30.0); Chloride 107 mmol/L (98-107); Chol/HDL Ratio 4.2 (1-3.5); Cholesterol 157 mg/dl (140-200); Estimated Glomerular Filt Rate 87 ml/min (>60); GFR (African American) 105 ML/MIN (>60); Glucose 169 mg/dl (74-100); HDL Cholesterol 37 mg/dl (40-60); Potassium 3.6 mmoL/L (3.5-5.1); Sodium 143 mmol/L (136-145); Triglycerides 389 mg/dl (30-150); VLDL Cholesterol 78 mg/dL (0-40)
[2021-06-16 09:47] LABS: Direct LDL Cholesterol 66.89 mg/dL (100-129)
== END ==
PROVIDERS: Visit Provider Nurse Practitioner Family
DX: D45 Polycythemia vera (principal); I10 Essential (primary) hypertension; I25.10 Atherosclerotic heart disease of native coronary artery without angina pectoris; I34.0 Nonrheumatic mitral (valve) insufficiency; I35.0 Nonrheumatic aortic (valve) stenosis; I35.1 Nonrheumatic aortic (valve) insufficiency; I71.2 Thoracic aortic aneurysm, without rupture; I77.810 Thoracic aortic ectasia; I77.89 Other specified disorders of arteries and arterioles; E78.5 Hyperlipidemia, unspecified; I26.99 Other pulmonary embolism without acute cor pulmonale; R60.9 Edema, unspecified
CPT/HCPCS: 36415; 80048; 80061; 80076; 85025

== ENCOUNTER → 2021-06-19 07:36 | Outpatient (CLI) | payer BC, SELFPAY ==
--- NOTE | 2021-06-19 07:45 | CT_ITS ---
FINAL REPORT CLINICAL HISTORY: pneumonia in 02/2021, cough COMPARISON: 01/04/2021 FINDINGS: Thin section axial CT images of the chest were obtained with contrast. 3D reformatted images were also obtained. This study was performed with techniques to keep radiation doses as low as reasonably achievable (ALARA). Individualized dose reduction techniques using automated exposure control or adjustment of mA and/or kV according to the patient's size were employed. There is no evidence of pulmonary embolism. There is no evidence of thoracic aortic aneurysm or dissection. There are borderline size mediastinal nodes without evidence of adenopathy. There is no evidence of pulmonary mass or nodule. No localized inflammatory process is seen within the lungs. There is mild scarring in the lung bases. There has been interval resolution of the left lower lobe consolidation seen on the prior exam. Limited images of the upper abdomen demonstrate multiple small hepatic cysts. IMPRESSION: No evidence of pulmonary embolism. No mass or localized inflammatory process. Reviewed, Interpreted and Dictated by Low Robertson III, MD Transcribed by Isi Daugherty Authenticated by Low Robertson III, MD on 06/19/2021 09:16:00 AM [facility]
== END ==
LOC: RAD 07:38
PROVIDERS: PCP Family Medicine; Visit Provider Nurse Practitioner Family
DX: I71.2 Thoracic aortic aneurysm, without rupture (principal); I26.99 Other pulmonary embolism without acute cor pulmonale; D45 Polycythemia vera; I34.0 Nonrheumatic mitral (valve) insufficiency; I35.0 Nonrheumatic aortic (valve) stenosis; E78.5 Hyperlipidemia, unspecified; I10 Essential (primary) hypertension; R60.9 Edema, unspecified
CPT/HCPCS: 71275; Q9967

== ENCOUNTER → 2021-07-14 10:12 | Outpatient (CLI) | payer BC, SELFPAY ==
--- NOTE | 2021-07-14 10:25 | CT_ITS ---
FINAL REPORT TECHNIQUE: Thin section axial CT images were obtained from the lung apices to the upper abdomen. IV contrast was administered. MIP 3-D reformats were obtained. This study was performed with techniques to keep radiation doses as low as reasonably achievable (ALARA). Individualized dose reduction techniques using automated exposure control or adjustment of mA and/or kV according to the patient's size were employed. CLINICAL HISTORY: thoracic aortic aneurysm COMPARISON: June 19, 2021 FINDINGS: The heart size is normal. There is no adenopathy. The mediastinal vasculature is well opacified. There is no filling defect to suggest PE. There is ectasia of the ascending thoracic aorta up to 4.4 cm seen on image 38 of series 5. There is no aortic dissection. There is no pericardial effusion. There is no suspicious infiltrate or nodule. No pleural effusion. Limited images of the upper abdomen demonstrate a multitude of low-attenuation structures in the liver that are well-circumscribed and probably due to small cysts. IMPRESSION: No pulmonary embolism or aortic dissection. Ascending thoracic aortic aneurysm up to 4.4 cm. Reviewed, Interpreted and Dictated by Jairo Shah MD Transcribed by Eris Manzano Authenticated by Jairo Shah MD on 07/14/2021 12:50:46 PM [facility]
== END ==
PROVIDERS: PCP Nurse Practitioner Family; Visit Provider Nurse Practitioner Family
DX: I71.2 Thoracic aortic aneurysm, without rupture (principal); R06.02 Shortness of breath; I77.810 Thoracic aortic ectasia; D45 Polycythemia vera; I10 Essential (primary) hypertension; I26.99 Other pulmonary embolism without acute cor pulmonale; I34.0 Nonrheumatic mitral (valve) insufficiency; I35.0 Nonrheumatic aortic (valve) stenosis
CPT/HCPCS: 71275; Q9967

== ENCOUNTER → 2021-07-20 08:21 | Outpatient (CLI) | payer BC, SELFPAY ==
--- NOTE | 2021-07-20 08:27 | US_ITS ---
FINAL REPORT CLINICAL HISTORY: ABD PAIN FINDINGS: Sonographic images of the abdomen were obtained. The liver has increased echogenicity consistent with fatty infiltration. The gallbladder is partially collapsed with mild wall thickening as a nonspecific finding. There is no evidence of biliary ductal dilatation. The common hepatic duct measures 4 mm, which is within normal limits. Limited images of the pancreas are unremarkable. The spleen is enlarged measuring 13.8 cm in length. The right kidney measures 13.3 cm in length. The left kidney measures 13.1 cm in length. There is normal renal echogenicity. There is no evidence of hydronephrosis. The aorta has an unremarkable appearance. Limited images of the inferior vena cava are unremarkable. IMPRESSION: Fatty liver. Partially collapsed gallbladder with mild wall thickening, nonspecific. Splenomegaly. Reviewed, Interpreted and Dictated by Low Robertson III, MD Transcribed by Katarina Sol Authenticated by Low Robertson III, MD on 07/20/2021 09:55:28 AM [facility]
== END ==
LOC: RAD 08:22
PROVIDERS: PCP Nurse Practitioner Family; Visit Provider Nurse Practitioner Family
DX: R10.9 Unspecified abdominal pain (principal)
CPT/HCPCS: 76700

== ENCOUNTER → 2021-08-06 10:25 | Outpatient (CLI) | payer BC, SELFPAY ==
--- NOTE | 2021-08-06 10:32 | NM_ITS ---
FINAL REPORT CLINICAL HISTORY: RT SIDED ABD PAIN 10:45 am 8.36 mci tc choletec injected into lt ant 11;50 AM 2.4 MCG OF CCK PAIN HAD NO PAIN DURING CCK U/S GB WAS NEG FOR STONES FINDINGS: Sequential anterior projection images of the abdomen were obtained after the intravenous injection of 8.36 mCi technetium 99m Choletec. There is normal uptake of radiotracer by the liver. The bile ducts, bile ducts, and bowel are visualized by 10 minutes. After 1 hour, 2.4 ?g of CCK was injected intravenously for calculation of gallbladder ejection fraction. The gallbladder ejection fraction is 94 %, which is within normal limits. IMPRESSION: No evidence of cystic duct or bile duct obstruction. Normal gallbladder ejection fraction of 94 %. Reviewed, Interpreted and Dictated by Low Robertson III, MD Transcribed by Eris Manzano Authenticated by Low Robertson III, MD on 08/06/2021 01:40:56 PM [facility]
== END ==
LOC: RAD 10:27
PROVIDERS: PCP Nurse Practitioner Family; Visit Provider Nurse Practitioner Family
DX: R10.10 Upper abdominal pain, unspecified (principal)
CPT/HCPCS: 78227; A9537; J2805

== ENCOUNTER → 2021-09-16 07:43 | Outpatient (CLI) | payer BC, SELFPAY ==
--- NOTE | 2021-09-16 07:47 | CA_ITS ---
FINAL REPORT TECHNIQUE: Grayscale, color Doppler and duplex Doppler ultrasound of the kidneys, aorta and renal arteries was performed. Multiple velocities were measured. CLINICAL HISTORY: HTN FINDINGS: Aorta velocity: 104 cm/sec Right kidney: 12.4 cm. No evidence of hydronephrosis or mass. Right intrarenal RI: 0.58 Right renal artery velocity: 126 cm/sec. Right RAR (Renal artery-Aortic Ratio): 1.2 Left Kidney: 12.5 cm. No evidence of hydronephrosis or mass. Left intrarenal RI: 0.64 Left renal artery velocity: 129 cm/sec. Left RAR (Renal Artery-Aortic Ratio): 1.2 IMPRESSION: No evidence of significant renal artery stenosis. CT angiogram or postcontrast MR angiogram would be more sensitive for evaluation of possible renal artery stenosis. Reviewed, Interpreted and Dictated by Low Robertson III, MD Transcribed by Isi Daugherty Authenticated and [facility]
== END ==
PROVIDERS: PCP Nurse Practitioner Family; Visit Provider Internal Medicine Cardiovascular Disease
DX: R06.02 Shortness of breath (principal); I10 Essential (primary) hypertension; D45 Polycythemia vera; I26.99 Other pulmonary embolism without acute cor pulmonale; I34.0 Nonrheumatic mitral (valve) insufficiency; I35.0 Nonrheumatic aortic (valve) stenosis; I77.810 Thoracic aortic ectasia
CPT/HCPCS: 93976

== ENCOUNTER → 2022-02-22 08:54 | Outpatient (CLI) | payer BC, SELFPAY ==
--- NOTE | 2022-02-22 09:04 | ECG_ITS ---
APPROVED REPORT Exam: Resting ECG HR:63 bpm ECG Measurements Heart Rate 63 AXES NJ 206 P 41 QRSd 108 QRS 6 QT 439 T 42 QTc 446 Conclusion SINUS RHYTHM NONSPECIFIC T-WAVE ABNORMALITY BORDERLINE ECG UNCONFIRMED REPORT Electronically signed by : Maykel Garcia MD 02/22/2022 19:43:22
[2022-02-22 09:27] LABS: MANUAL DIFFERENTIAL MANUAL DIFFERENTIAL (MANUAL DIFF)
[2022-02-22 09:46] LABS: Basophils # 0.1 K/mm3 (0-0.2); Eosinophils # 0.3 K/mm3 (0.0-0.4); Eosinophils % 3.8 % (0.1-12.0); Hematocrit 39.1 % (42.0-52.0); Hemoglobin 13.1 g/dL (14.1-18.0); Lymphocytes # 1.8 K/mm3 (0.7-4.5); Lymphocytes % 24.2 % (10-50); Mean Corpuscular HGB Conc 33.4 g/dL (31.8-35.4); Mean Platelet Volume 9.5 fl (7.4-10.4); Monocytes # 0.5 K/mm3 (0.1-1.0); Neutrophils # 4.7 K/mm3 (1.8-7.8); Platelet Count 250 K/mm3 (142-424); Red Blood Count 4.35 M/mm3 (4.60-6.20); Red Cell Distribution Width 13.7 % (11.5-17.5); White Blood Count 7.3 K/mm3 (4.8-10.8)
[2022-02-22 10:08] LABS: Eosinophils % 1 % (0-3); Lymphocytes % 24 % (10-50); Monocytes % 5 % (2-9); Neutrophils % 70 % (42-76); Platelet Estimate Normal; RBC Morphology Normal; Total Cells Counted 100
[2022-02-22 10:47] LABS: Alanine Aminotransferase 31 U/L (12-78); Albumin Level 4.3 g/dl (3.5-5.0); Albumin/Globulin Ratio 1.8 (1.1-1.8); Alkaline Phosphatase 123 U/L (38-126); Anion Gap 19.1 mEq/L (5-15); Aspartate Amino Transferase 29 U/L (17-59); Bilirubin,Total 0.5 mg/dl (0.2-1.3); Blood Urea Nitrogen 23 mg/dl (9-20); Calcium 9.4 mg/dl (8.4-10.2); Carbon Dioxide 26 mmol/L (22.0-30.0); Chloride 99 mmol/L (98-107); Estimated Glomerular Filt Rate 44 ml/min (>60); GFR (African American) 54 ML/MIN (>60); Globulin 2.4 g/dL (1.3-3.2); Glucose 186 mg/dl (74-100); Potassium 3.1 mmoL/L (3.5-5.1); Sodium 141 mmol/L (136-145); Total Protein,Serum 6.7 g/dl (6.3-8.2)
== END ==
LOC: LAB 08:55
PROVIDERS: PCP Nurse Practitioner Family; Visit Provider Student in an Organized Health Care Education/Training Program
DX: G47.33 Obstructive sleep apnea (adult) (pediatric); Z01.818 Encounter for other preprocedural examination
CPT/HCPCS: 36415; 80053; 85007; 85014; 85018; 85048; 85049; 93005

== ENCOUNTER 2022-02-23 07:07 | Day surgery (SDC) | payer BC, SELFPAY ==
[2022-02-23 07:19] VITALS: BMI 33.9
[2022-02-23 07:22] VITALS: BP 138/87; PULSE 59; RESP 18; TEMP 36.7; O2SAT 97
[2022-02-23 08:18] VITALS: BP 130/50; PULSE 59; RESP 16; TEMP 36.1; O2SAT 94
--- NOTE | 2022-02-23 08:21 | EXP.OP.NOTE ---
Date of procedure: 02/23/22 Pre-op Diagnosis:: sleep apnea Post-op Diagnosis:: same Procedure performed:: drug induced sleep endoscopy Surgeon:: Dada Dawson MD Anesthesia: MAC Estimated blood loss (mL): 0 Operative findings:: see dictated report Operative note:: The patient was brought to the OR, laid in a supine position and snoring and intermittent apnea was slowly induced with a propofol drip. Small amount of Afrin and plain 1% lidocaine was instilled into the patient's nares. Using the flexible fiberoptic laryngoscope and then inserted through the patient's right nare. Patient had approximately 50% lateral collapse at the level of the velum. He had complete lateral collapse of the oropharynx and tonsillar tissue. He had mild anterior posterior collapse of the tongue base. He had significant anterior posterior collapse of the epiglottis. Scope was removed and removed and the patient turned back over to anesthesia to be awoken. Condition: stable Disposition: PACU Complications:: none
--- NOTE | 2022-02-23 08:23 | EXP.ANES.CKL ---
[facility] Medical History Aortic insufficiency Aortic root enlargement Aortic valvar stenosis Ascending aorta dilatation Chest pain Coronary artery calcification seen on CAT scan HTN (hypertension) Intolerance to BiPAP/CPAP Mitral valve regurgitation Obstructive sleep apnea syndrome SOB (shortness of breath) Surgical History History of carpal tunnel release of both wrists Family History Other Family history of myocardial infarction Social History (Updated 02/23/22 @ 07:22 by Leslie Nelson RN) Smoking Status: Never smoker second hand exposure: No alcohol intake: current substance use type: denies use current occupational status: employed Travel in the last 8 weeks: Inside the [place] household members: spouse and children housing: house current occupation: [employer] current occupational exposures/hazards: No caffeine: Yes [facility] Anesthesia Checklist Patient Identification Patient Identification: Arm Band Structural Data Admitted From: Home Planned Operative Procedure/s: Drug Induced Sleep Endoscopy Consent for Planned Operative Procedure(s) Verified: Yes Verified Documents: Surgical Consent and History and Physical NPO Status Verified Time NPO: 00:00 Additional verifications Anesthesia Reactions: No Hx Blood Transfusions: No Airway Assessment C-Spine Mobility Assessed: Yes TMJ Mobility Assessed: Yes Dentition: Good Dentition Neurological Assessment Level of Consciousness: Awake and Alert Anesthesia Plan Anesthesia Risk discussed: Yes Anesthesia Plan: Verified ASA Class: II Anesthesia Type: MAC
[2022-02-23 08:28] VITALS: BP 97/61; PULSE 56; RESP 16; O2SAT 95
[2022-02-23 08:38] VITALS: BP 103/61; PULSE 52; RESP 16; O2SAT 95
[2022-02-23 08:48] VITALS: BP 102/70; PULSE 50; RESP 16; TEMP 36.1; O2SAT 96
== END 2022-02-23 08:49 | disposition home or self-care (01) ==
PROVIDERS: PCP Nurse Practitioner Family; Visit Provider Student in an Organized Health Care Education/Training Program
PROC: (CPT 42975; principal; 2022-02-23 07:30)
DX: G47.30 Sleep apnea, unspecified (principal); Z79.899 Other long term (current) drug therapy
CPT/HCPCS: 42975

== ENCOUNTER 2022-05-15 10:32 | Emergency (ER) | payer BC, SELFPAY ==
[2022-05-15 10:45] VITALS: BP 111/75; PULSE 67; RESP 20; TEMP 37.1; O2SAT 97; BMI 33.9
--- NOTE | 2022-05-15 10:48 | EXP.UTC ---
Discharge Plan Disposition Patient Disposition: Home, Self-Care Condition: Good Prescriptions Prescriptions: New benzonatate [benzonatate] 100 mg capsule 100 mg PO TIDP PRN (Reason: Cough) Qty: 30 0RF methylprednisolone 4 mg Tablets,Dose Pack 4 mg PO DIRECTED Qty: 21 0RF Paxlovid (EUA) 300 mg (150 mg x 2)-100 mg tablet See Rx Instructions .ROUTE .COMPLEX Qty: 30 0RF Rx Instructions: take TWO 150 mg tablets of nirmatrelvir with ONE 100 mg tablet of ritonavir twice daily for 5 days No Action sildenafil 50 mg tablet 50 mg PO DAILY PRN (Reason: *) Label Comments: TAKE 1 TABLET BY MOUTH ONCE DAILY NEEDED amlodipine 10 mg tablet 10 mg PO DAILY Qty: 60 5RF bisoprolol fumarate 10 mg tablet 20 mg .Route DAILY Qty: 60 5RF Rx Instructions: 20 mg daily; lisinopril 40 mg tablet See Rx Instructions .Route .COMPLEX Qty: 30 5RF Rx Instructions: TAKE 1 TABLET BY MOUTH DAILY FOR HIGH BLOOD PRESSURE clonidine HCl 0.1 mg tablet 0.1 mg PO TID triamterene-hydrochlorothiazid 75-50 mg tablet 1 tab PO DAILY rosuvastatin [Crestor] 20 mg tablet 20 mg PO DAILY Referrals Follow up/Referrals: Luis Allan MD [Primary Care Provider] - See instructions Activity Restrictions/Add. Instructions Additional Instructions/Restrictions: Drink plenty of fluids. Take tylenol or ibuprofen for pain or fever. Take the medications as directed. Follow up with your regular doctor. GO TO THE ER FOR ANY WORSENING SYMPTOMS Quarantine until you know the results of your covid-19 test. Notify your school or workplace of your results and follow their instructions regarding return to work/school. Clinical Impressions Clinical Impression: COVID-19 Instructions Patient Instructions: Coronavirus Disease 2019, Preventing the Spread of Coronavirus Discharge Instructions Discharge ED Provider: Billy Gr[place] [facility] [place] General Stated complaint: sore throat,cough,chills,home test positive Time Seen by Provider: 05/15/22 10:47 History of Present Illness Provider Complaint: He states that for the past 2 days he has had sinus congestion, sore throat and chest congestion. He tested positive for covid-19 on a home test today. He needs a pcr covid test for his work. Related Data Home Medications Medication Instructions Recorded Confirmed sildenafil 50 mg tablet 50 mg PO DAILY PRN * 02/05/22 03/03/22 clonidine HCl 0.1 mg tablet 0.1 mg PO TID mood 02/23/22 03/03/22 rosuvastatin 20 mg tablet (Crestor) 20 mg PO DAILY Cholesterol 02/23/22 03/03/22 triamterene 75 1 tab PO DAILY BP 02/23/22 03/03/22 mg-hydrochlorothiazide 50 mg tablet Previous Rx's Medication Instructions Recorded amlodipine 10 mg tablet 10 mg PO DAILY bp #60 tabs 02/05/22 bisoprolol fumarate 10 mg tablet 20 mg .Route DAILY bp #60 tabs 02/05/22 lisinopril 40 mg tablet See Rx Instructions .Route 02/05/22 .COMPLEX bp #30 tabs benzonatate 100 mg capsule 100 mg PO TIDP PRN Cough #30 caps 05/15/22 methylprednisolone 4 mg tablets in 4 mg PO DIRECTED #21 tabs 05/15/22 a dose pack nirmatrelvir 300 mg (150 mg See Rx Instructions PO .COMPLEX 05/15/22 x2)-ritonavir 100 mg tablet,dose #30 tabs pack(EUA) (Paxlovid) Allergies Allergy/AdvReac Type Severity Reaction Status Date / Time atorvastatin AdvReac Mild myalgia Verified 03/03/22 15:10 [facility] Disclaimer: The information contained in this section may have been updated after the patient was seen, as this information can be updated by other users. Medical History Aortic insufficiency Aortic root enlargement Aortic valvar stenosis Ascending aorta dilatation Chest pain Coronary artery calcification seen on CAT scan HTN (hypertension) Intolerance to BiPAP/CPAP Mitral valve regurgitation Obstructive sleep apnea syndrome SOB (shortness of breath) Surgical History (Reviewed 0
[2022-05-15 11:04] VITALS: BP 111/75; PULSE 67; RESP 20; TEMP 37.1; O2SAT 97
== END 2022-05-15 11:38 | disposition home or self-care (01) ==
PROVIDERS: Emergency Provider Nurse Practitioner Family; PCP Family Medicine
DX: U07.1 COVID-19 (principal); J02.9 Acute pharyngitis, unspecified; R05.9 Cough, unspecified; R50.9 Fever, unspecified
CPT/HCPCS: 99212; 99213; C9803; G0463; U0003; U0005

== ENCOUNTER 2022-06-11 19:31 | Observation (INO) | payer BC, SELFPAY ==
[2022-06-11 19:48] VITALS: BP 114/63; PULSE 76; RESP 18; TEMP 37.3; O2SAT 98; BMI 20.3
--- NOTE | 2022-06-11 19:58 | XR_ITS ---
PROCEDURE INFORMATION: Exam: XR Chest Exam date and time: 06/11/2022 8:03 PM Age: 61 years old Clinical indication: Other: Blood sugar elevation; Additional info: Fever, body aches, recent covid TECHNIQUE: Imaging protocol: Radiologic exam of the chest. Views: 2 views. COMPARISON: CR XR CHEST 2V 01/04/2021 12:58 PM FINDINGS: Lungs: Unremarkable. No consolidation. Pleural spaces: Unremarkable. No pleural effusion. No pneumothorax. Heart/Mediastinum: Unremarkable. No cardiomegaly. Bones/joints: Unremarkable. IMPRESSION: No acute findings.
[2022-06-11 20:05] LABS: Basophils # 0.1 K/mm3 (0-0.2); Basophils % 0.9 % (0.1-2.0); Eosinophils # 0.3 K/mm3 (0.0-0.4); Eosinophils % 2.9 % (0.1-12.0); Hematocrit 39.7 % (42.0-52.0); Hemoglobin 13.5 g/dL (14.1-18.0); Lymphocytes % 21.5 % (10-50); Mean Corpuscular HGB Conc 34.1 g/dL (31.8-35.4); Mean Corpuscular Hemoglobin 29.5 pg (27.0-31.2); Mean Corpuscular Volume 86.7 fl (80-94); Mean Platelet Volume 10.2 fl (7.4-10.4); Monocytes # 0.6 K/mm3 (0.1-1.0); Monocytes % 6.6 % (1.7-9.3); Neutrophils # 6.2 K/mm3 (1.8-7.8); Neutrophils % 68.1 % (37.0-80.0); Platelet Count 265 K/mm3 (142-424); Red Blood Count 4.57 M/mm3 (4.60-6.20); Red Cell Distribution Width 13.7 % (11.5-17.5); White Blood Count 9.1 K/mm3 (4.8-10.8)
[2022-06-11 20:08] LABS: VBG Base Excess 0.4 mmol/L (-2.4-2.3); VBG HCO3 24.7 mmol/L (23-30); VBG Oxygen Saturation 94.8 % (50-70); VBG PCO2 38.3 mmol/L (35-51); VBG PH 7.43 mmol/L (7.31-7.41); VBG PO2 71.2 mmol/L (28-40); VBG Total CO2 25.9 mmol/L (23-27)
[2022-06-11 20:12] LABS: Acetone, Serum (Rapid) None Detected (None Detect)
[2022-06-11 20:17] LABS: Hemoglobin A1C 10.6 % (4.0-6.0)
[2022-06-11 20:21] LABS: Chloride 87 mmol/L (98-107); Potassium 3.5 mmoL/L (3.5-5.1); Sodium 126 mmol/L (136-145)
[2022-06-11 20:22] LABS: Microscopic, Urine URINE MICROSCOPIC (MICROSCOPIC)
[2022-06-11 20:24] LABS: Alanine Aminotransferase 27 U/L (12-78); Albumin Level 4.7 g/dl (3.5-5.0); Albumin/Globulin Ratio 1.8 (1.1-1.8); Alkaline Phosphatase 160 U/L (38-126); Anion Gap 16.5 mEq/L (5-15); Aspartate Amino Transferase 25 U/L (17-59); Bilirubin,Total 0.9 mg/dl (0.2-1.3); Blood Urea Nitrogen 27 mg/dl (9-20); Calcium 9.6 mg/dl (8.4-10.2); Carbon Dioxide 26 mmol/L (22.0-30.0); Creatinine Clearance Estimated 36 mL/min (50-200); Estimated Glomerular Filt Rate 32 ml/min (>60); GFR (African American) 39 ML/MIN (>60); Globulin 2.6 g/dL (1.3-3.2); Total Protein,Serum 7.3 g/dl (6.3-8.2)
[2022-06-11 20:31] LABS: Appearance,Urine CLEAR (Clear); Bilirubin,Urine Negative (Negative); Blood, Urine 1+ (Negative); Color,Urine YELLOW (Yellow); Glucose,Urine (UA) 3+ (Negative); Ketones,Urine Negative (Negative); Leukocyte Esterase,Urine Negative (Negative); Nitrate,Urine Negative (Negative); PH,Urine 6.5 (5.0-8.5); Protein,Urine Negative (Negative); Urobilinogen,Urine 0.2 EU/dl (0.2)
[2022-06-11 20:38] LABS: Glucose 631 mg/dl (74-100)
--- NOTE | 2022-06-11 20:48 | PC.NURSE ---
Dr. Borrero notified of critical blood sugar of 633
--- NOTE | 2022-06-11 20:53 | PC.NURSE ---
Dr. Borrero s/harriett Jaramillo, hospitalist, for admission.
[2022-06-11 20:56] LABS: Coronavirus 19, PCR Not Detected (NotDetected); Influenza A, PCR Not Detected (NotDetected); Influenza B, PCR Not Detected (NotDetected)
--- NOTE | 2022-06-11 20:56 | HMH.EDGENADL ---
Discharge Plan Disposition Patient Disposition: Admitted As Inpatient Condition: Fair Chief Complaint: Hyper/Hypoglycemia Prescriptions Prescriptions: No Action sildenafil 50 mg tablet 50 mg PO DAILY PRN (Reason: *) Label Comments: TAKE 1 TABLET BY MOUTH ONCE DAILY NEEDED amlodipine 10 mg tablet 10 mg PO DAILY Qty: 60 5RF bisoprolol fumarate 10 mg tablet 20 mg .Route DAILY Qty: 60 5RF Rx Instructions: 20 mg daily; lisinopril 40 mg tablet See Rx Instructions .Route .COMPLEX Qty: 30 5RF Rx Instructions: TAKE 1 TABLET BY MOUTH DAILY FOR HIGH BLOOD PRESSURE clonidine HCl 0.1 mg tablet 0.1 mg PO TID triamterene-hydrochlorothiazid 75-50 mg tablet 1 tab PO DAILY rosuvastatin [Crestor] 20 mg tablet 20 mg PO DAILY benzonatate [benzonatate] 100 mg capsule 100 mg PO TIDP PRN (Reason: Cough) Qty: 30 0RF methylprednisolone 4 mg Tablets,Dose Pack 4 mg PO DIRECTED Qty: 21 0RF Paxlovid (EUA) 300 mg (150 mg x 2)-100 mg tablet See Rx Instructions .ROUTE .COMPLEX Qty: 30 0RF Rx Instructions: take TWO 150 mg tablets of nirmatrelvir with ONE 100 mg tablet of ritonavir twice daily for 5 days Discharge ED Provider: Arlen Borrero Adult HPI General Chief complaint: Hyper/Hypoglycemia Stated complaint: elevated blood sugar, weakness, body aches Time Seen by Provider: 06/11/22 20:16 Mode of Arrival: Ambulatory Source of Information: Patient Limitations: No Limitations Description of Symptoms (Recalled from ER Triage Doc. by RN): Pt arrives via private vehicle. States he was at work today and felt very achey and had a dry mouth. States that he has had excessive urination. Was positive for covid 3 weeks ago. Presents with low grade fever. States that he hasnt been able to eat today due to nausea. States that he went to see his employee health nurse before leaving work tonight and his blood glucose was 600. No known history of diabetes. History of Present Illness HPI narrative: Patient is a 61yo white male who is here for weakness and drinking alot and urinating alot. Patient has texting positive for covid one month. Patient has no chest pain or abdominal pain. Patient symptoms of covid are better only symptom left is lost of taste. Patient checked his blood sugar with glucometer and it was reading high so came to er. Onset (ago): day(s) Severity: moderate Consistency: constant Relieving factors: none Exacerbating factors: none Associated symptoms: malaise and weakness Treatments prior to arrival: none Related Data Home Medications Medication Instructions Recorded Confirmed sildenafil 50 mg tablet 50 mg PO DAILY PRN * 02/05/22 03/03/22 clonidine HCl 0.1 mg tablet 0.1 mg PO TID mood 02/23/22 03/03/22 rosuvastatin 20 mg tablet (Crestor) 20 mg PO DAILY Cholesterol 02/23/22 03/03/22 triamterene 75 1 tab PO DAILY BP 02/23/22 03/03/22 mg-hydrochlorothiazide 50 mg tablet Previous Rx's Medication Instructions Recorded amlodipine 10 mg tablet 10 mg PO DAILY bp #60 tabs 02/05/22 bisoprolol fumarate 10 mg tablet 20 mg .Route DAILY bp #60 tabs 02/05/22 lisinopril 40 mg tablet See Rx Instructions .Route 02/05/22 .COMPLEX bp #30 tabs benzonatate 100 mg capsule 100 mg PO TIDP PRN Cough #30 caps 05/15/22 methylprednisolone 4 mg tablets in 4 mg PO DIRECTED #21 tabs 05/15/22 a dose pack nirmatrelvir 300 mg (150 mg See Rx Instructions PO .COMPLEX 05/15/22 x2)-ritonavir 100 mg tablet,dose #30 tabs pack(EUA) (Paxlovid) Allergies Allergy/AdvReac Type Severity Reaction Status Date / Time atorvastatin AdvReac Mild myalgia Verified 03/03/22 15:10 [facility] Disclaimer: The information contained in this section may have been updated after the patient was seen, as this information can be updated by other users. Medical History Aortic insufficiency Aortic root enlargement Aortic va
--- NOTE | 2022-06-11 20:58 | PC.NURSE ---
notified house that pt has been accepted for admission by hospitalist
--- NOTE | 2022-06-11 20:58 | PC.NURSE ---
Called house superintendent regarding patient request for to stay. Patient tested positive for covid three weeks ago so will remain covid positive for several weeks, even though his quarantine was up 11 days ago. Per Nathalie, patients ability to have stay will depend on the covid swab from this admission, even though he will be falsely positive for the next several weeks.
[2022-06-11 20:59] LABS: RBC,Urine Occasional #/hpf (0-3); Squamous Epithelial Cell,Urine Occasional #/hpf (0-5); WBC,Urine Occasional #/hpf (0-3)
[2022-06-11 21:12] VITALS: BP 121/68; PULSE 76; RESP 17; TEMP 37; O2SAT 98; BMI 32.9
--- NOTE | 2022-06-11 21:14 | PC.NURSE ---
Patient blood glucose was 519 via beside finger stick. Per , 15U medium scale given via subcutaneous injection. Dose verified with Shagufta Jones rn.
[2022-06-11 21:17] LABS: POC Glucose,Bedside 519 (70-110)
--- NOTE | 2022-06-11 21:21 | EXP.HP ---
History of Present Illness *Admission Date: 06/11/22 *Reason for visit:: Excessive Thirst, excessive urination, fatigue *History of present illness: Mr. Norman is a 61-year-old male with a past medical history that is positive for HTN, Hyperlipidemia. He presents to [facility] due to several days of polyuria, polydipsia, fatigue and myalgias. He reports that he felt very weak at work today and when he came home his checked his blood glucose per glucometer which read high. He denies a previous history of DM, but reports that his father is a diabetic. In the ER the patient underwent a CBC that was unremarkable, Cxray showed no acute cardiopulmonary findings. CMP showed a Na of 126, K of 3.5, Creatinine of 2.10, Glucose was 631 mg/dl. Venous Blood gas was within normal limits, A1C was 10.6. The patient will be admitted with initial impression: Hyperglycemia, newly diagnosed DM, JOSHUA, Hyponatremia. He will be continued on fluids, he was placed on sliding scale insulin. He will have diabetic teaching and follow-up with PCP arranged. All of this information was discussed with the patient and family at bedside. All verbalized understanding and agreement with the plan of care. [facility] Disclaimer: The information contained in this section may have been updated after the patient was seen, as this information can be updated by other users. Medical History Aortic insufficiency Aortic root enlargement Aortic valvar stenosis Ascending aorta dilatation Chest pain Coronary artery calcification seen on CAT scan HTN (hypertension) Intolerance to BiPAP/CPAP Mitral valve regurgitation Obstructive sleep apnea syndrome SOB (shortness of breath) Surgical History History of carpal tunnel release of both wrists Family History Other Family history of myocardial infarction Social History Smoking Status: Never smoker second hand exposure: No alcohol intake: current substance use type: denies use current occupational status: employed Travel in the last 8 weeks: None adopted: No caregiver/support person: Yes (SPOUSE) foster care: No household members: spouse and children housing: house lives independently: No (LIVES WITH ) marital status: education level: high school service: No residential: No current occupation: [employer] current occupational exposures/hazards: No caffeine: Yes Review of Systems Review of Systems Review of systems:: pertinent systems reviewed and negative unless documented below Constitutional Constitutional: Reports system reviewed and no additional complaints, except as documented Eyes Eyes: Reports system reviewed and no additional complaints, except as documented ENT Ears, Nose, Mouth, and Throat: Reports system reviewed and no additional complaints, except as documented *Cardiovascular Cardiovascular: Reports system reviewed and no additional complaints, except as documented *Respiratory Respiratory: Reports system reviewed and no additional complaints, except as documented *Gastrointestinal Gastrointestinal: Reports system reviewed and no additional complaints, except as documented *Genitourinary Genitourinary: Reports system reviewed and no additional complaints, except as documented *Musculoskeletal Musculoskeletal: Reports muscle cramps Integumentary/Breasts Skin/Breast: Reports system reviewed and no additional complaints, except as documented *Neurologic Neurologic: Reports system reviewed and no additional complaints, except as documented Psychiatric Psychiatric: Reports system reviewed and no additional complaints, except as documented Endocrine Endocrine: Reports polydipsia and Reports polyuria Hematologic/Lymphatic Hemat
[2022-06-11 21:25] VITALS: BP 110/76; PULSE 64; RESP 20; TEMP 37.2; O2SAT 97
--- NOTE | 2022-06-11 21:25 | PC.NURSE ---
Called report to Anat BLANC on 2nd floor
--- NOTE | 2022-06-11 21:30 | PC.NURSE ---
AT 2120 RECEIVED PHONE REPORT FROM ULISSES/ED . PATIENT COVID POSITIVE 3 WEEKS AGO. ON PAXLOVID. ADMISSION DX: NEW ONSET DM TYPE 2, HYPERGLYCEMIA.
--- NOTE | 2022-06-11 21:41 | PC.NURSE ---
Upon reassessment, patient was negative during testing for covid. Please disregard prior note.
--- NOTE | 2022-06-11 21:48 | PC.NURSE ---
PATIENT ARRIVED TO THE FLOOR AT 2145 VIA W/C. ADMITTED TO ROOM 202. PLACED ON CONTACT/AIRBORN PRECAUTIONS.
[2022-06-11 22:35] VITALS: O2SAT 98
[2022-06-12 03:02] LABS: POC Glucose,Bedside 332 (70-110)
[2022-06-12 04:00] VITALS: BP 103/66; PULSE 67; RESP 16; TEMP 36.8; O2SAT 97; BMI 33.0
[2022-06-12 07:10] LABS: Basophils # 0.1 K/mm3 (0-0.2); Lymphocytes # 1.9 K/mm3 (0.7-4.5); Monocytes # 0.4 K/mm3 (0.1-1.0)
[2022-06-12 07:15] LABS: Basophils % 0.8 % (0.1-2.0); Eosinophils # 0.2 K/mm3 (0.0-0.4); Eosinophils % 3.7 % (0.1-12.0); Hematocrit 34.3 % (42.0-52.0); Lymphocytes % 29.9 % (10-50); Mean Corpuscular HGB Conc 35.3 g/dL (31.8-35.4); Mean Corpuscular Hemoglobin 29.6 pg (27.0-31.2); Mean Corpuscular Volume 83.9 fl (80-94); Mean Platelet Volume 10.1 fl (7.4-10.4); Monocytes % 6.2 % (1.7-9.3); Neutrophils # 3.7 K/mm3 (1.8-7.8); Neutrophils % 59.4 % (37.0-80.0); Platelet Count 229 K/mm3 (142-424); Red Cell Distribution Width 13.5 % (11.5-17.5); White Blood Count 6.2 K/mm3 (4.8-10.8)
[2022-06-12 07:16] LABS: Hemoglobin 12.1 g/dL (14.1-18.0)
[2022-06-12 07:24] LABS: Chloride 99 mmol/L (98-107); Sodium 133 mmol/L (136-145)
[2022-06-12 07:27] LABS: Alanine Aminotransferase 18 U/L (12-78); Albumin Level 3.7 g/dl (3.5-5.0); Albumin/Globulin Ratio 1.6 (1.1-1.8); Alkaline Phosphatase 116 U/L (38-126); Anion Gap 8.9 mEq/L (5-15); Aspartate Amino Transferase 17 U/L (17-59); Bilirubin,Total 0.5 mg/dl (0.2-1.3); Blood Urea Nitrogen 16 mg/dl (9-20); Calcium 8.3 mg/dl (8.4-10.2); Carbon Dioxide 28 mmol/L (22.0-30.0); Creatinine Clearance Estimated 96 mL/min (50-200); Estimated Glomerular Filt Rate 57 ml/min (>60); GFR (African American) 68 ML/MIN (>60); Globulin 2.3 g/dL (1.3-3.2); Glucose 248 mg/dl (74-100)
[2022-06-12 07:35] LABS: Potassium 2.9 mmoL/L (3.5-5.1)
[2022-06-12 07:37] VITALS: BP 125/78; PULSE 81; RESP 18; TEMP 36.9; O2SAT 94
[2022-06-12 09:04] LABS: POC Glucose,Bedside 377 (70-110)
--- NOTE | 2022-06-12 09:08 | EXP.ACUTE.PN ---
Subjective *Date: 06/12/22 *Time: 09:08 Interval history: Patient did well over night. Feeling somewhat better. Tolerating p.o. intake. Labs showing improvement in kidney function and glucose control. Received 25 units total of insulin overnight so far. No nausea or vomiting. Blood pressure well controlled. Afebrile. Stable on room air. Medical Exam Vital signs and Labs for Last 24 Hours: Vital Signs Temp Pulse Pulse Resp BP BP Pulse Ox 06/12/22 07:37 98.4 F 81 18 125/78 94 L 06/12/22 04:00 98.2 F 67 16 103/66 L 97 06/11/22 21:12 98.6 F 76 17 121/68 98 06/11/22 22:35 98 06/11/22 21:25 99.0 F 64 20 110/76 06/11/22 19:48 99.1 F 76 18 114/63 98 Intake and Output 06/11/22 06/12/22 06/12/22 23:59 07:59 15:59 Intake Total 1500 / 1500 480 / 480 Output Total Balance 1499 / 1499 479 / 479 Intake: Intake, Oral Amount 480 / 480 Intake, Total IV Amount 1500 / 1500 Output: Output, Urine Amount Other: Weight 110.359 kg 110.586 kg Patient Weight 06/12/22 23:59 Weight 110.586 kg Laboratory Results - last 24 hr 06/11/22 19:45: SARS-CoV-2 (PCR) Not detected, Influenza A Untype (PCR) Not detected, Influenza Type B (PCR) Not detected 06/11/22 19:50: WBC 9.1, RBC 4.57 L, Hgb 13.5 L, Hct 39.7 L, MCV 86.7, MCH 29.5, MCHC 34.1, RDW 13.7, Plt Count 265, MPV 10.2, Neut % (Auto) 68.1, Lymph % (Auto) 21.5, [place] % (Auto) 6.6, Eos % (Auto) 2.9, Baso % (Auto) 0.9, Neut # (Auto) 6.2, Lymph # (Auto) 2.0, [place] # (Auto) 0.6, Eos # (Auto) 0.3, Baso # (Auto) 0.1 06/11/22 19:50: Sodium 126 L, Potassium 3.5, Chloride 87 L, Carbon Dioxide 26, Anion Gap 16.5 H, BUN 27 H, Creatinine 2.10 H, Estimated Creat Clear 36, Estimated GFR 32 L, Est GFR ( Amer) 39 L, Glucose 631 H*, Calcium 9.6, Total Bilirubin 0.9, AST 25, ALT 27, Alkaline Phosphatase 160 H, Total Protein 7.3, Albumin 4.7, Globulin 2.6, Albumin/Globulin Ratio 1.8 06/11/22 19:50: Hemoglobin A1c 10.6 H 06/11/22 19:50: Acetone Level None detected 06/11/22 19:54: VBG pH 7.43 H, VBG pCO2 38.3, VBG pO2 71.2 H, VBG HCO3 24.7, VBG Total CO2 25.9, VBG O2 Saturation 94.8 H, VBG Base Excess 0.4 06/11/22 20:09: Urine Color Yellow, Urine Appearance Clear, Urine pH 6.5, Ur Specific [place] 1.010, Urine Protein Negative, Urine Glucose (UA) 3+, Urine Ketones Negative, Urine Blood 1+, Urine Nitrate Negative, Urine Bilirubin Negative, Urine Urobilinogen 0.2, Ur Leukocyte Esterase Negative, Urine RBC Occasional, Urine WBC Occasional, Ur Squamous Epith Cells Occasional, Urine Bacteria None 06/11/22 21:10: POC Glucose 519 H* 06/12/22 02:49: POC Glucose 332 H* 06/12/22 06:55: Sodium 133 L, Potassium 2.9 L*, Chloride 99, Carbon Dioxide 28, Anion Gap 8.9, BUN 16 D, Creatinine 1.30 H D, Estimated Creat Clear 96, Estimated GFR 57 L, Est GFR ( Amer) 68 D, Glucose 248 H D, Calcium 8.3 L, Total Bilirubin 0.5, AST 17 D, ALT 18 D, Alkaline Phosphatase 116, Total Protein 6.0 L, Albumin 3.7 D, Globulin 2.3, Albumin/Globulin Ratio 1.6 06/12/22 06:55: WBC 6.2 D, RBC 4.10 L, Hgb 12.1 L D, Hct 34.3 L, MCV 83.9, MCH 29.6, MCHC 35.3, RDW 13.5, Plt Count 229, MPV 10.1, Neut % (Auto) 59.4, Lymph % (Auto) 29.9, [place] % (Auto) 6.2, Eos % (Auto) 3.7, Baso % (Auto) 0.8, Neut # (Auto) 3.7, Lymph # (Auto) 1.9, [place] # (Auto) 0.4, Eos # (Auto) 0.2, Baso # (Auto) 0.1 06/12/22 08:53: POC Glucose 377 H* I & O for Labs for Last 24 Hours: Intake & Output 06/09/22 06/10/22 06/11/22 06/12/22 23:59 23:59 23:59 23:59 Intake Total 1500 / 1500 480 / 480 Output Total Balance 1499 / 1499 479 / 479 Weight 110.359 kg 110.586 kg Constitutional: Present no acute distress Head: Present atraumatic and normocephalic ENT: Present normal exam Neck: Present normal inspection Respiratory: Present CTA bilaterally and normal respiratory effort; Absent accessory muscle use, rhonchi, wheezes or crackles Cardiac: Present Reg Rate and Rhyt
--- NOTE | 2022-06-12 09:11 | HMH.PHAINT1 ---
Pharmacy Intervention Comments: MEDICATION RECONCILIATION COMPLETED ON PATIENT USING EXTERNAL FILL HISTORY FROM PHARMACY. -AJ DC, YORDAND
[2022-06-12 12:32] VITALS: BP 124/82; PULSE 77; RESP 18
[2022-06-12 14:34] LABS: POC Glucose,Bedside 403 (70-110)
[2022-06-12 15:44] VITALS: BP 114/73; PULSE 63; RESP 16; TEMP 37.1; O2SAT 95
[2022-06-12 18:42] LABS: Chloride 97 mmol/L (98-107); Potassium 3.3 mmoL/L (3.5-5.1); Sodium 133 mmol/L (136-145)
[2022-06-12 18:45] LABS: Anion Gap 10.3 mEq/L (5-15); Blood Urea Nitrogen 17 mg/dl (9-20); Carbon Dioxide 29 mmol/L (22.0-30.0); Creatinine Clearance Estimated 104 mL/min (50-200); Estimated Glomerular Filt Rate 62 ml/min (>60); GFR (African American) 75 ML/MIN (>60)
[2022-06-12 18:46] LABS: Calcium 8.2 mg/dl (8.4-10.2); Glucose 302 mg/dl (74-100)
[2022-06-12 19:40] VITALS: BP 129/82; PULSE 70; RESP 20; TEMP 37.1; O2SAT 96
[2022-06-12 20:00] VITALS: O2SAT 96
[2022-06-12 20:49] LABS: POC Glucose,Bedside 343 (70-110)
[2022-06-13 03:23] LABS: POC Glucose,Bedside 334 (70-110)
[2022-06-13 04:00] VITALS: BP 130/85; PULSE 67; RESP 16; TEMP 36.8; O2SAT 97; BMI 33.0
[2022-06-13 05:38] LABS: POC Glucose,Bedside 277 (70-110)
--- NOTE | 2022-06-13 05:57 | PC.NURSE ---
HAS HAD A QUIET NIGHT. BLOOD SUGARS REMAIN ELEVATED UP INTO 300'S REQUIRING S/S INSULIN COVERAGE. NO C/O PAIN . AT BEDSIDE.
[2022-06-13 06:46] LABS: Basophils # 0.1 K/mm3 (0-0.2); Basophils % 1.1 % (0.1-2.0); Eosinophils # 0.2 K/mm3 (0.0-0.4); Eosinophils % 3.7 % (0.1-12.0); Hemoglobin 11.9 g/dL (14.1-18.0); Lymphocytes % 37.7 % (10-50); Mean Corpuscular HGB Conc 33.9 g/dL (31.8-35.4); Mean Corpuscular Hemoglobin 29.2 pg (27.0-31.2); Mean Corpuscular Volume 86.2 fl (80-94); Mean Platelet Volume 10.1 fl (7.4-10.4); Monocytes # 0.3 K/mm3 (0.1-1.0); Neutrophils # 2.8 K/mm3 (1.8-7.8); Neutrophils % 51.5 % (37.0-80.0); Platelet Count 213 K/mm3 (142-424); Red Blood Count 4.06 M/mm3 (4.60-6.20); Red Cell Distribution Width 13.7 % (11.5-17.5); White Blood Count 5.4 K/mm3 (4.8-10.8)
[2022-06-13 06:57] LABS: Alanine Aminotransferase 16 U/L (12-78); Albumin Level 3.4 g/dl (3.5-5.0); Albumin/Globulin Ratio 1.4 (1.1-1.8); Alkaline Phosphatase 131 U/L (38-126); Anion Gap 9.1 mEq/L (5-15); Aspartate Amino Transferase 20 U/L (17-59); Bilirubin,Total 0.3 mg/dl (0.2-1.3); Blood Urea Nitrogen 17 mg/dl (9-20); Calcium 8.1 mg/dl (8.4-10.2); Carbon Dioxide 27 mmol/L (22.0-30.0); Chloride 102 mmol/L (98-107); Creatinine Clearance Estimated 113 mL/min (50-200); Estimated Glomerular Filt Rate 69 ml/min (>60); GFR (African American) 83 ML/MIN (>60); Globulin 2.4 g/dL (1.3-3.2); Glucose 261 mg/dl (74-100); Magnesium 2.3 mg/dl (1.6-2.3); Potassium 3.1 mmoL/L (3.5-5.1); Sodium 135 mmol/L (136-145); Total Protein,Serum 5.8 g/dl (6.3-8.2)
[2022-06-13 07:09] VITALS: BP 155/103; PULSE 61; RESP 17; TEMP 36.8; O2SAT 96
--- NOTE | 2022-06-13 07:14 | EXP.DC.SUM ---
General Admission date:: 06/11/22 Discharge date: 06/13/22 HPI HPI HPI: Mr. Norman is a 61-year-old male with a past medical history that is positive for HTN, Hyperlipidemia. He presents to [facility] due to several days of polyuria, polydipsia, fatigue and myalgias. He reports that he felt very weak at work today and when he came home his checked his blood glucose per glucometer which read high. He denies a previous history of DM, but reports that his father is a diabetic. In the ER the patient underwent a CBC that was unremarkable, Cxray showed no acute cardiopulmonary findings. CMP showed a Na of 126, K of 3.5, Creatinine of 2.10, Glucose was 631 mg/dl. Venous Blood gas was within normal limits, A1C was 10.6. The patient will be admitted with initial impression: Hyperglycemia, newly diagnosed DM, JOSHUA, Hyponatremia. He will be continued on fluids, he was placed on sliding scale insulin. He will have diabetic teaching and follow-up with PCP arranged. All of this information was discussed with the patient and family at bedside. All verbalized understanding and agreement with the plan of care. Hospital Course Hospital Course Hospital Course: 61-year-old male who presents with several days polyuria, polydipsia, fatigue, weakness. Found to have significant hyperglycemia with glucose above 600. New diagnosis of diabetes. Admitted for initiation of insulin therapy, treatment of JOSHUA, and further management. Problems addressed as follows: - Hyperglycemia - New diagnosis of diabetes A1c obtained, 10.6 on admission. Minimal anion gap. Initiated on sliding scale corrective insulin high intensity and IV fluid resuscitation. Glucose control improved with numbers between 2 and 300. Initiated on long-acting nighttime insulin with glargine. We will continue with 30 units insulin glargine at time of discharge. Started on metformin, tolerating 1000 mg twice daily. Started on Jardiance 10 mg daily. Glucometer and pen needles and lancets sent to patient's pharmacy at discharge. Needs close follow-up for further management and treatment of his diabetes. Will need further adjustment of his insulin regimen and titration of his Jardiance dose. Encourage patient to follow-up with his PCP within the next week. In the meantime recommend checking glucose in the morning for fasting levels and in the evening before bed. Significant improvement in urine output and normalization of electrolyte disturbances. Stable for discharge home for further outpatient management - JOSHUA: Appeared hypovolemic on admission with dry mucus membranes. Initiated on resuscitative fluids. Creatinine normalized to 1.1 on day of discharge. This appears to be patient's baseline. - Hyponatremia: Likely pseudohyponatremia given hyperglycemia.? Improved with fluid resuscitation and correction of hyperglycemia - Hypokalemia: Potassium initially normal on admission. Decreased to 2.9 with correction of uncontrolled diabetes. Repleted with oral supplementation and IV. Potassium improved to 3.1 on day of discharge. Anticipate improvement with resumption of normal diet, encouraged bananas daily for supplementation and correction. Would benefit from repeat labs in a week to monitor electrolytes and kidney - Hyperlipidemia: Continued home statin therapy - Hypertension: Initially normotensive on presentation. Blood pressure rebounded with correction of metabolic disturbance and fluid resuscitation. Resumed home regimen including amlodipine, bisoprolol, lisinopril prior to discharge. Held clonidine. Additionally held triamterene HCTZ in setting of patient's electrolyte disturbances and starting Jardiance which has diuretic equivocal effect. Recommend reevaluating blood pressure regimen at follow-up. Stable for discharge home with further management as an outpatient. Patient would benefit from referral to nutrition/dietary at [facility] for dietary
[2022-06-13 10:49] VITALS: BP 147/80; PULSE 64
[2022-06-13 11:52] LABS: POC Glucose,Bedside 256 (70-110)
--- NOTE | 2022-06-15 14:42 | CARE MANAGER ---
Attempted to contact patient x2 related to hospital discharge. Left VM. JAYASHREE Rios
== END 2022-06-13 12:50 | disposition home or self-care (01) ==
LOC: ER 20:16 → 2ND 21:06
PROVIDERS: Nurse Practitioner Family; Student in an Organized Health Care Education/Training Program; Admitting Provider Internal Medicine Adolescent Medicine; Emergency Provider Emergency Medicine; PCP Family Medicine; Visit Provider Internal Medicine Adolescent Medicine
DX: N17.9 Acute kidney failure, unspecified; E87.6 Hypokalemia; E87.1 Hypo-osmolality and hyponatremia; I10 Essential (primary) hypertension; E78.5 Hyperlipidemia, unspecified; Z79.899 Other long term (current) drug therapy; E11.65 Type 2 diabetes mellitus with hyperglycemia
CPT/HCPCS: 36415; 71046; 80048; 80053; 81001; 82009; 82803; 82962; 83036; 83735; 85025; 99285; C9803; G0378; U0003; U0005

== ENCOUNTER → 2022-08-23 10:16 | Outpatient (CLI) | payer BC, SELFPAY ==
--- NOTE | 2022-08-23 10:20 | CA_ITS ---
FINAL REPORT TECHNIQUE: Multiple transverse and longitudinal images were performed of right the femoral-popliteal deep venous system with augmentation and compression maneuvers. CLINICAL HISTORY: HTN, hyperlipidemia, DM, hx of PE couple of years ago. 81 mg ASA daily. Denies trauma. States RLE began swelling 2-3 weeks ago. Patient states he is on his feet 12+ hours a day. The swelling resolves with elevation. FINDINGS: Right lower extremity duplex ultrasound demonstrates normal flow in the deep venous system. There is no abnormal echogenicity to suggest thrombus. There is normal compression and augmentation. IMPRESSION: No evidence of right DVT. Reviewed, Interpreted and Dictated by Low Robertson III, MD Transcribed by Kath Lorenzo Authenticated and [facility]
== END ==
LOC: RT 10:16
PROVIDERS: PCP Nurse Practitioner Family; Visit Provider Nurse Practitioner Family
DX: M79.604 Pain in right leg (principal); M79.89 Other specified soft tissue disorders
CPT/HCPCS: 93971

== ENCOUNTER 2022-10-25 08:32 | Emergency (ER) | payer BC, SELFPAY ==
[2022-10-25] VITALS (8 sets, daily range): BP systolic 124–154; BP diastolic 79–99; PULSE 79–98; RESP 17–20; TEMP 36.6–36.8; O2SAT 93–98; BMI 34.5
--- NOTE | 2022-10-25 08:32 | ECG_ITS ---
APPROVED REPORT Exam: Resting ECG HR:93 bpm ECG Measurements Heart Rate 93 AXES WY 171 P 46 QRSd 109 QRS -10 QT 364 T 58 QTc 415 Conclusion SINUS RHYTHM NORMAL ECG UNCONFIRMED REPORT Electronically signed by : Maykel Garcia MD 10/25/2022 17:56:58
--- NOTE | 2022-10-25 08:39 | CT_ITS ---
FINAL REPORT TECHNIQUE: Thin section axial CT with contrast with multiplanar reconstruction CLINICAL HISTORY: TAA, HTN and CP COMPARISON: 07/14/2021 FINDINGS: Pulmonary vessels enhance in normal fashion without evidence of embolism. Thoracic aorta shows no dissection. There is a sending thoracic aortic aneurysm of 47 mm, was 44 mm.. No pulmonary mass or infiltrate is present. There is no significant pleural effusion. There is no significant pericardial effusion. No mediastinal or hilar adenopathy is present. IMPRESSION: No evidence of pulmonary embolism. Stable fusiform ascending aortic aneurysm. Reviewed, Interpreted and Dictated by Jocelyn Gregorio MD Transcribed by Leslie Goncalves Authenticated and [facility]
--- NOTE | 2022-10-25 08:43 | PC.NURSE ---
notified rad of xray order
[2022-10-25 08:51] LABS: Basophils # 0.1 K/mm3 (0-0.2); Basophils % 0.7 % (0.1-2.0); Eosinophils # 0.4 K/mm3 (0.0-0.4); Eosinophils % 5.4 % (0.1-12.0); Hematocrit 48.8 % (42.0-52.0); Hemoglobin 15.7 g/dL (14.1-18.0); Lymphocytes # 2.2 K/mm3 (0.7-4.5); Lymphocytes % 29.9 % (10-50); Mean Corpuscular HGB Conc 32.2 g/dL (31.8-35.4); Mean Corpuscular Hemoglobin 28.6 pg (27.0-31.2); Mean Corpuscular Volume 88.8 fl (80-94); Mean Platelet Volume 8.6 fl (7.4-10.4); Monocytes # 0.5 K/mm3 (0.1-1.0); Monocytes % 6.5 % (1.7-9.3); Neutrophils # 4.2 K/mm3 (1.8-7.8); Neutrophils % 57.5 % (37.0-80.0); Platelet Count 227 K/mm3 (142-424); Red Cell Distribution Width 14.4 % (11.5-17.5); White Blood Count 7.3 K/mm3 (4.8-10.8)
--- NOTE | 2022-10-25 08:52 | PC.NURSE ---
DR BRADLEY AT BEDSIDE
--- NOTE | 2022-10-25 08:58 | HMH.EDGENADL ---
Discharge Plan Disposition Patient Disposition: Home, Self-Care Condition: Good Chief Complaint: Chest Pain Prescriptions Prescriptions: No Action sildenafil 50 mg tablet 50 mg PO DAILYP PRN (Reason: Erectile Dysfunction) Patient Comments: TAKE 1 TABLET BY MOUTH ONCE DAILY NEEDED rosuvastatin [Crestor] 20 mg tablet 20 mg PO DAILY bisoprolol fumarate 10 mg tablet 20 mg PO DAILY amlodipine 10 mg tablet 10 mg PO DAILY lisinopril 40 mg tablet 40 mg PO DAILY insulin glargine [Lantus Solostar U-100 Insulin] 100 unit/mL (3 mL) Insulin Pen 30 unit SQ HS 30 Days Qty: 9 0RF metformin 1,000 mg tablet 1,000 mg PO BID 30 Days Qty: 60 0RF (DME) pen needle, diabetic [Pen Needle] 32 gauge x 5/32 needle See Rx Instructions .Route Qty: 50 1RF Rx Instructions: As directed (DME) blood-glucose meter [Accu-Chek Guide Glucose Meter] Misc See Rx Instructions .Route Qty: 1 0RF Rx Instructions: twice daily (DME) Accu-Chek Guide test strips Strip See Rx Instructions .Route Qty: 100 0RF Rx Instructions: As directed Jardiance 10 mg Tablet 10 mg PO DAILY 30 Days Qty: 30 0RF Referrals Follow up/Referrals: Provider,Referral, MD [Primary Care Provider] - See instructions Activity Restrictions/Add. Instructions Additional Instructions/Restrictions: [phone] is a contact information for CT surgery at [facility]. Call them to schedule an appointment to follow-up your chest and 4.7 cm thoracic aortic aneurysm. If you have any worsening of your condition or any other concerning signs or symptoms, return to the emergency department or your primary care doctor for further evaluation. Clinical Impressions Clinical Impression: Chest pain Qualifiers: Chest pain type: unspecified Qualified Code(s): R07.9 - Chest pain, unspecified Discharge ED Provider: Marciano Lazo General Adult [facility] General Chief complaint: Chest Pain Stated complaint: chest pain Time Seen by Provider: 10/25/22 08:35 Mode of Arrival: Ambulatory Source of Information: Patient Limitations: No Limitations Description of Symptoms (Recalled from ER Triage Doc. by RN): Presents via POV d/t intermittent left thoracic pain, left chest pressure, and SOA that started /Tuesday, however more consistent over the weekend. Denies precipitating factors. Pt reports upright position helps alleviate the SOA. +Asa 81mg. Hx of HTN. History of Present Illness HPI narrative: This is a 61-year-old male with history of hypertension, hyperlipidemia, mitral valve regurgitation, aortic insufficiency secondary to 4.6 cm thoracic aortic aneurysm presenting with chest and back pain. Patient states that 5 days prior to arrival, he was sitting at home when he had chest pain start on the left side. Initially dull and self abated. Since that time, it has become constant. He is currently having mild to moderate in intensity pain feels like an ache in his left chest that radiates through to his back and causes numbness and tingling in his left upper extremity. Because of patient's history of thoracic aortic aneurysm, he wanted to come get checked out the emergency department. He has had associated shortness of breath, but denies diaphoresis, weakness in the upper extremity, any other neurologic deficits, nausea or vomiting, abdominal pain, fevers or chills, cough, or any other relevant history. Related Data Home Medications Medication Instructions Recorded Confirmed sildenafil 50 mg tablet 50 mg PO DAILYP PRN Erectile 02/05/22 06/12/22 Dysfunction rosuvastatin 20 mg tablet (Crestor) 20 mg PO DAILY Cholesterol 02/23/22 06/11/22 amlodipine 10 mg tablet 10 mg PO DAILY Hypertension 06/12/22 06/11/22 bisoprolol fumarate 10 mg tablet 20 mg PO DAILY Hypertension 06/12/22 06/12/22 lisinopril 40 mg tablet 40 mg PO DAILY Hypertension 06/12/22 06/12/22 Previous Rx's Medication Instructions Recorde
[2022-10-25 09:06] LABS: Chloride 102 mmol/L (98-107); Potassium 3.6 mmoL/L (3.5-5.1); Sodium 138 mmol/L (136-145)
[2022-10-25 09:08] LABS: Blood Urea Nitrogen 14 mg/dl (9-20); Creatinine Clearance Estimated 130 mL/min (50-200); Estimated Glomerular Filt Rate 76 ml/min (>60); GFR (African American) 93 ML/MIN (>60)
[2022-10-25 09:09] LABS: Alanine Aminotransferase 29 U/L (12-78); Albumin Level 4.5 g/dl (3.5-5.0); Albumin/Globulin Ratio 1.5 (1.1-1.8); Alkaline Phosphatase 103 U/L (38-126); Anion Gap 16.6 mEq/L (5-15); Aspartate Amino Transferase 31 U/L (17-59); Bilirubin,Total 0.6 mg/dl (0.2-1.3); Calcium 9.5 mg/dl (8.4-10.2); Carbon Dioxide 23 mmol/L (22.0-30.0); Glucose 151 mg/dl (74-100); Total Protein,Serum 7.5 g/dl (6.3-8.2)
[2022-10-25 09:18] LABS: NT Pro Brain Natriuretic Pep. 128 pg/mL (0-125)
--- NOTE | 2022-10-25 09:28 | PC.NURSE ---
pt in radiology
--- NOTE | 2022-10-25 09:34 | PC.NURSE ---
contacted lab to check on status of troponin results, states approx 10 minutes, states she had to change machines
--- NOTE | 2022-10-25 09:36 | PC.NURSE ---
PT RETURNED FROM CT
[2022-10-25 09:58] LABS: Troponin I < 0.01 ng/ml (0.00-0.034)
--- NOTE | 2022-10-25 10:28 | PC.NURSE ---
DR BRADLEY AT BEDSIDE TO UPDATE PT
[2022-10-25 12:44] LABS: Troponin I < 0.01 ng/ml (0.00-0.034)
--- NOTE | 2022-10-25 13:02 | PC.NURSE ---
DR BRADLEY AT BEDSIDE TO UPDATE PT
== END 2022-10-25 13:10 | disposition home or self-care (01) ==
PROVIDERS: Emergency Provider Emergency Medicine
DX: R07.9 Chest pain, unspecified (principal); R06.02 Shortness of breath; I10 Essential (primary) hypertension; E78.5 Hyperlipidemia, unspecified; I34.0 Nonrheumatic mitral (valve) insufficiency; I35.1 Nonrheumatic aortic (valve) insufficiency; I71.20 Thoracic aortic aneurysm, without rupture, unspecified; G47.33 Obstructive sleep apnea (adult) (pediatric)
CPT/HCPCS: 36415; 71275; 80053; 83880; 84484; 85025; 93005; 99285; Q9967

== ENCOUNTER → 2022-10-28 07:14 | Outpatient (CLI) | payer BC, SELFPAY ==
--- NOTE | 2022-10-28 | CA_ITS ---
APPROVED REPORT Exam: Pharmacologic Technologist: Tiny Morse, Ht: 6 ft 0 in Wt: 256 lbs BSA: 2.37 m2 HR: 87 bpm BP: 150/110 mmHg Rhythm: NSR, PVCS, POOR R WAVE PROGRESSION, SMALL INFERIOR Q WAVES Indications: SOA, CP Medical History Medical History: HTN, Hyperlipidemia, Diabetes Medications: Amlodipine,,,,, Lisinopril,,,,, Metformin,,,,, Gabapentin,,,,, Crestor,,,,, BisOPROLOL,,,,, LanTUS,,,,, SilDENAFIL,,,,, TriaMeterine/HCTZ,,,,, Cardiac Risk Factors: HTN, Hyperlipidemia, Diabetes Stress Test Details Test: LEXISCAN HR Resting HR: 91 bpm Max Heart Rate (APMHR): 161 bpm Max HR Achieved: 111 bpm Target HR (85% APMHR): 137 bpm % of APMHR: 69 Recovery HR: 92 bpm BP Resting BP: 150/110 mmHg Max BP: 163/98 mmHg Recovery BP: 163.0/98.0 mmHg ECG Resting ECG: NSR, PVCS, POOR R WAVE PROGRESSION, SMALL INFERIOR Q WAVES Stress ECG: NO CHANGE Arrhythmia: PVCs Recovery ECG: NO CHANGE Recovery Arrhythmia: PVCs Clinical Exercise duration: 04:01 min Highest Stage Achieved: Stress ECG Conclusion PT HAD MILD SOA, AND STOMACH DISCOMFORT NO CP OCC ISOLATED, UNIFOCAL PVCS NO SIGNIFICANT ST CHANGES CONCLUSION UNREMARKABLE LEXISCAN STRESS MYOVIEW IMAGES REPORTED SEPARATELY Test Summary REST 02:55 . . 91 . 150/110 . . Stage 1 01:00 . . 110 . . . . Stage 2 01:00 . . 103 . 157/ 97 . . Stage 3 01:00 . . 100 . 159/ 96 . . Stage 4 01:00 . . 98 . 149/104 . . Stage 4 01:01 . . 98 . 149/104 . Stop exercise at 04:01 RECOVERY 01:00 . . 94 . 152/100 . . RECOVERY 02:00 . . 93 . 152/100 . . RECOVERY 03:00 . . 96 . 152/100 . . RECOVERY 03:34 . . 91 . 163/ 98 . . Electronically signed by : My Garcia, 10/28/2022 14:16:58
--- NOTE | 2022-10-28 07:19 | NM_ITS ---
APPROVED REPORT Exam: Nuclear Stress Test Indication: chest pain..soa..fatigue Patient Location: Outpatient Stress Tech: Tiny Morse SC Tech:Amelia BurtonOSVALDO RT(R)(N) Ht: 6 ft 0 in Wt: 256 lbs HR: 91 bpm BP: 150/110 mmHg BSA: 2.37 m2 Rhythm: NSR TID: 1.00 History: chest pain..soa..fatigue Procedure: Patient received 0.4 mg of intravenous Lexiscan, resting heart rate 91 bpm, resting blood pressure 150/110 mmHg, with Lexiscan maximum heart rate achieved was 111 bpm which is 85 % of the maximum predicted heart rate and blood pressure was 163/98 mmHg. With Lexiscan, patient denied any complaint of chest pain. Cardiac Stress and Resting SPECT Images: Cardiac Stress and Resting SPECT images were obtained using technetium 99m Myoview 30.7 mCi stress and 10.65 mCi at rest. Resting and stress imaging in supine and prone positions demonstrate a medium sized, moderate, fixed perfusion defect in the basal inferior and lateral LV manzanares. Gated imaging demonstrates mild reduction in global LV systolic function. There is moderate hypokinesis in the basal inferior and basal lateral LV manzanares. LVEF is calculated at 45%. Conclusion: Medium sized, moderate, fixed perfusion defect in the basal inferior and lateral LV manzanares. No evidence of reversible ischemia. Gated imaging demonstrates mild reduction in global LV systolic function. There is moderate hypokinesis in the basal inferior and basal lateral LV manzanares. LVEF is calculated at 45%. Electronically signed by : My Garcia, 10/28/2022 14:19:30
== END ==
LOC: RAD 07:16
PROVIDERS: PCP Nurse Practitioner Family; Visit Provider Nurse Practitioner
DX: R07.9 Chest pain, unspecified (principal); I25.10 Atherosclerotic heart disease of native coronary artery without angina pectoris; I34.0 Nonrheumatic mitral (valve) insufficiency; I35.0 Nonrheumatic aortic (valve) stenosis; I35.1 Nonrheumatic aortic (valve) insufficiency; I10 Essential (primary) hypertension; E78.5 Hyperlipidemia, unspecified; I71.20 Thoracic aortic aneurysm, without rupture, unspecified; I77.810 Thoracic aortic ectasia; I77.89 Other specified disorders of arteries and arterioles
CPT/HCPCS: 78452; 93017; A9502; J2785

== ENCOUNTER → 2022-10-29 07:45 | Outpatient (CLI) | payer BC, SELFPAY ==
--- NOTE | 2022-10-29 07:51 | CA_ITS ---
APPROVED REPORT EXAM: Comprehensive 2D, Doppler, and color-flow Echocardiogram Caregiver Services Home: Doreen [facility] CRT Ht: 6 ft 0 in Wt: 256lbs BSA: 2.37 BP: 164/111 mmHg Indications: BAV KEILA 2017, AV stenosis, mr, adalid, AAA, DM. HTN, HLD 2D Dimensions LVOT 1.70 cm (M/F) 1.5-2.5 LA Volume 40.30 mL LA Volume Index 16.70 mL/m2 (M/F) 16-34 M-Mode Dimensions RVDd 4.12 cm (0.9-2.6) LA Diam 4.17 cm (1.9-4.0) LVDd 6.05 cm (3.5-5.7) Ao Diam 4.66 cm (2.0-3.7) LVDs 4.43 cm (3.5-5.7) IVSd 1.46 cm (0.6-1.1) PWd 1.04 cm (0.6-1.1) EF (Teich) 51.40% FS 26.80% EDV (Teich) 183.40 mL TAPSE 1.75 (<1.7) ESV (Teich) 89.10 mL LV Diastology E Decel Time 250.00 (160-240 msec) E/A Ratio 0.75 MED E' 3.60 (< 7 cm/sec) MED A' 6.80 cm/s E'/MED E' Ratio 17.39 (>14) LAT E' 4.40 (<10 cm/sec) LAT A' 13.40 cm/s E/LAT E' Ratio 14.23 (>14) Aortic Valve LVOT Max 150.00 (70-110 cm/s) LVOT VTI 31.60 cm AoV Peak Pedro. 258.00 (50-130 cm/s) AO Peak GR. 26.80 mmHg AO Mean GR. 17.00 (<5 mmHg) AO VTI 53.20 (18-25 cm) AGGIE (VTI) 1.35 (2.5-4.5 cm2) Mitral Valve MV E Max Pedro. 63.00 (40-130 cm/s) MV A Velocity 83.00 (40-130 cm/s) E/A Ratio 0.75 MV Decel. Time 250.00 (160-240 ms) MV PHT 73.00 ms Pulmonary Valve PV Peak Velocity 99.00 (50-150 cm/s) Tricuspid Valve TR P. Velocity 238.00 cm/s RAP Estimate 10.00 mmHg RVSP 32.70 mmHg Left Ventricle The left ventricle is normal size. The left ventricular systolic function is normal. The left ventricular ejection fraction is within the normal range. There is increased LV wall thickness. There is normal LV segmental wall motion. Diastolic function is indeterminate. LVEF is 55%. Right Ventricle The right ventricle is normal size. The right ventricular systolic function is normal. Atria The left atrium size is normal. The right atrium size is normal. Aortic Valve The aortic valve leaflets are mildly thickened. There is mild aortic stenosis. AGGIE is 1.7 cm2. Peak velocity 2.6 m/s. Mean AV gradient is 22 mmHg. Max AV gradient 33 mmHg. No aortic regurgitation is present. Mitral Valve The mitral valve leaflets are mildly thickened. There is mild mitral regurgitation. Tricuspid Valve The tricuspid valve leaflets are thin and pliable. Trace tricuspid regurgitation. RVSP is 30-35 mmHg. Pulmonic Valve The pulmonary valve is normal in structure. Trace pulmonic regurgitation. Great Vessels The aortic root is normal in size. The ascending aorta is mildly dilated. Ascending aorta measures 4.2 cm. The IVC is dilated. The IVC collapses > 50% with respirophasic variation. RA pressure is estimated to be 8 mmHg. Pericardium There is no pericardial effusion. Conclusion Normal biventricular systolic function. Mildly thickened AV leaflets. Mild aortic stenosis (). Mildly dilated ascending aorta 4.2 cm. Electronically signed by : My Garcia, 10/29/2022 12:30:49
== END ==
LOC: RT 07:47
PROVIDERS: PCP Nurse Practitioner Family; Visit Provider Nurse Practitioner
DX: R07.9 Chest pain, unspecified (principal); I25.10 Atherosclerotic heart disease of native coronary artery without angina pectoris; I10 Essential (primary) hypertension; I34.0 Nonrheumatic mitral (valve) insufficiency; I35.0 Nonrheumatic aortic (valve) stenosis; I35.1 Nonrheumatic aortic (valve) insufficiency; E78.5 Hyperlipidemia, unspecified; I71.20 Thoracic aortic aneurysm, without rupture, unspecified; I77.89 Other specified disorders of arteries and arterioles
CPT/HCPCS: 93306

== ENCOUNTER 2022-11-15 09:20 | Day surgery (SDC) | payer BC, SELFPAY ==
[2022-11-15] VITALS (10 sets, daily range): BP systolic 111–158; BP diastolic 57–98; PULSE 53–65; RESP 17–20; O2SAT 90–97; BMI 34.8
--- NOTE | 2022-11-15 07:08 | IR_ITS ---
APPROVED REPORT Patient Location: Outpatient Legal Officer: OSVALDO Murphy RT (R) PROCEDURES Left heart catheterization Left ventriculogram Selective coronary angiogram Intravascular ultrasound of the right coronary INDICATION Acute and accelerated angina pectoris, Angiographic ambiguity involving the right coronary artery Informed consent was obtained prior to the procedure. COMPLICATIONS None Estimated Blood Loss: Less than 10 mls TECHNIQUE One percent lidocaine used to anesthetize the right anterior aspect of the wrist. The right radial artery was accessed via the Seldinger technique. A 6 Arabic sheath was placed in the right radial artery. 2.5 mg of Verapamil, 800 mcg of nitroglycerin, 1mg Lidocaine and 5000 U Heparin were given through the arterial sheath. The papa catheter was also used to perform left heart catheterization, left ventriculogram and selective coronary angiogram. At the end the diagnostic angiogram therapeutic Was administered giving a therapeutic ACT and the guide catheter was placed in the right coronary artery followed by Choice PT extra-support wire in the right coronary. The ostium of the right coronary artery was angiographically ambiguous and cannot be adequately laid out therefore an intravascular ultrasound probe was advanced. Intravascular ultrasound probe demonstrated a widely patent ostial and proximal right coronary artery without evidence of atherosclerotic plaque. At the end of procedure the apparatus was removed the sheath was removed and hemostasis was achieved using TR banding patient was transferred to the postop putting in stable condition. The right coronary artery had MINDI-3 flow before and after the procedure ANGIOGRAPHIC RESULTS The left main artery Normal The left anterior descending artery Normal The circumflex artery Normal The right coronary artery Large dominant normal The [place] ventriculogram reveals Normal 65% The left ventricular end-diastolic pressure 20 to 22 mmHg IMPRESSION Normal coronary arteries Normal ejection fraction Elevated LVEDP consistent with diastolic dysfunction PLAN 1. Treatment of diastolic dysfunction Electronically signed by : Ben Cordero MD 11/15/2022 11:25:54
[2022-11-15 10:01] LABS: Basophils # 0.1 K/mm3 (0-0.2); Basophils % 0.9 % (0.1-2.0); Eosinophils # 0.4 K/mm3 (0.0-0.4); Eosinophils % 7.1 % (0.1-12.0); Hematocrit 46.7 % (42.0-52.0); Hemoglobin 15.3 g/dL (14.1-18.0); Lymphocytes # 1.9 K/mm3 (0.7-4.5); Lymphocytes % 30.5 % (10-50); Mean Corpuscular HGB Conc 32.7 g/dL (31.8-35.4); Mean Corpuscular Hemoglobin 28.4 pg (27.0-31.2); Mean Platelet Volume 8.5 fl (7.4-10.4); Monocytes # 0.5 K/mm3 (0.1-1.0); Neutrophils # 3.3 K/mm3 (1.8-7.8); Neutrophils % 53.4 % (37.0-80.0); Platelet Count 231 K/mm3 (142-424); Red Blood Count 5.36 M/mm3 (4.60-6.20); White Blood Count 6.1 K/mm3 (4.8-10.8)
[2022-11-15 10:08] LABS: Anion Gap 13.4 mEq/L (5-15); Blood Urea Nitrogen 14 mg/dl (9-20); Calcium 8.8 mg/dl (8.4-10.2); Carbon Dioxide 27 mmol/L (22.0-30.0); Chloride 106 mmol/L (98-107); Creatinine Clearance Estimated 118 mL/min (50-200); Estimated Glomerular Filt Rate 68 ml/min (>60); GFR (African American) 83 ML/MIN (>60); Glucose 158 mg/dl (74-100); Potassium 3.4 mmoL/L (3.5-5.1); Sodium 143 mmol/L (136-145)
== END 2022-11-15 14:11 | disposition home or self-care (01) ==
PROVIDERS: PCP Nurse Practitioner Family; Visit Provider Internal Medicine
DX: I25.118 Atherosclerotic heart disease of native coronary artery with other forms of angina pectoris (principal); E11.9 Type 2 diabetes mellitus without complications; E78.5 Hyperlipidemia, unspecified; I10 Essential (primary) hypertension; I34.0 Nonrheumatic mitral (valve) insufficiency; I35.0 Nonrheumatic aortic (valve) stenosis; I35.1 Nonrheumatic aortic (valve) insufficiency; I71.20 Thoracic aortic aneurysm, without rupture, unspecified; I77.810 Thoracic aortic ectasia; I77.89 Other specified disorders of arteries and arterioles; R00.0 Tachycardia, unspecified; R94.39 Abnormal result of other cardiovascular function study; Z79.4 Long term (current) use of insulin
CPT/HCPCS: 80048; 85025; 92978; 93458; 99152; 99153; C1725; C1760; C1769; J1644; Q9967

== ENCOUNTER → 2023-02-18 10:34 | Outpatient (CLI) | payer BC, SELFPAY ==
--- NOTE | 2023-02-18 10:43 | XR_ITS ---
FINAL REPORT CLINICAL HISTORY: COUGH/WHEEZING, BRONCHITIS COMPARISON: 06/11/2022 FINDINGS: TWO-VIEW CHEST The heart size is normal. The mediastinum is normal. The lungs are clear. There is no pneumothorax. IMPRESSION: No acute cardiopulmonary process. Reviewed, Interpreted and Dictated by Jairo Shah MD Transcribed by Isi Daugherty Authenticated and [facility]
== END ==
PROVIDERS: PCP Nurse Practitioner Family; Visit Provider Nurse Practitioner Family
DX: R05.1 Acute cough (principal)
CPT/HCPCS: 71046

== ENCOUNTER → 2023-02-22 11:42 | Outpatient (CLI) | payer BC, SELFPAY ==
[2023-02-22 12:10] LABS: Basophils # 0.1 K/mm3 (0-0.2); Basophils % 1.2 % (0.1-2.0); Eosinophils # 0.4 K/mm3 (0.0-0.4); Eosinophils % 7.3 % (0.1-12.0); Hematocrit 47.8 % (42.0-52.0); Hemoglobin 16.3 g/dL (14.1-18.0); Lymphocytes # 1.9 K/mm3 (0.7-4.5); Lymphocytes % 38.7 % (10-50); Mean Corpuscular HGB Conc 34.1 g/dL (31.8-35.4); Mean Corpuscular Hemoglobin 30.6 pg (27.0-31.2); Mean Corpuscular Volume 89.5 fl (80-94); Mean Platelet Volume 8.9 fl (7.4-10.4); Monocytes # 0.3 K/mm3 (0.1-1.0); Neutrophils # 2.2 K/mm3 (1.8-7.8); Neutrophils % 45.7 % (37.0-80.0); Platelet Count 224 K/mm3 (142-424); Red Blood Count 5.34 M/mm3 (4.60-6.20); Red Cell Distribution Width 13.7 % (11.5-17.5); White Blood Count 4.8 K/mm3 (4.8-10.8)
[2023-02-22 12:43] LABS: Alanine Aminotransferase 25 U/L (12-78); Albumin Level 4.1 g/dl (3.5-5.0); Albumin/Globulin Ratio 1.6 (1.1-1.8); Alkaline Phosphatase 102 U/L (38-126); Anion Gap 10.3 mEq/L (5-15); Aspartate Amino Transferase 26 U/L (17-59); Bilirubin,Total 0.4 mg/dl (0.2-1.3); Blood Urea Nitrogen 16 mg/dl (9-20); Calcium 8.6 mg/dl (8.4-10.2); Carbon Dioxide 27 mmol/L (22.0-30.0); Chloride 102 mmol/L (98-107); Chol/HDL Ratio 5.6 (1-3.5); Cholesterol 168 mg/dl (140-200); Estimated Glomerular Filt Rate 68 ml/min (>60); GFR (African American) 83 ML/MIN (>60); Globulin 2.6 g/dL (1.3-3.2); Glucose 131 mg/dl (74-100); HDL Cholesterol 30 mg/dl (40-60); Potassium 3.3 mmoL/L (3.5-5.1); Sodium 136 mmol/L (136-145); Total Protein,Serum 6.7 g/dl (6.3-8.2)
[2023-02-22 12:48] LABS: Triglycerides 436 mg/dl (30-150)
[2023-02-22 12:54] LABS: Direct LDL Cholesterol 70.62 mg/dL (100-129)
[2023-02-22 13:14] LABS: Thyroid Stimulating Hormone 1.05 uIU/mL (0.465-4.68)
== END ==
PROVIDERS: PCP Nurse Practitioner Family; Visit Provider Nurse Practitioner Family
DX: E11.40 Type 2 diabetes mellitus with diabetic neuropathy, unspecified (principal); E78.2 Mixed hyperlipidemia; I10 Essential (primary) hypertension; R53.83 Other fatigue; Z79.4 Long term (current) use of insulin
CPT/HCPCS: 36415; 80053; 80061; 83036; 84443; 85025

== ENCOUNTER → 2023-03-14 13:31 | Outpatient (CLI) | payer BC, SELFPAY ==
--- NOTE | 2023-03-14 13:35 | XR_ITS ---
FINAL REPORT TECHNIQUE: Chest PA & Lateral CLINICAL HISTORY: SINUS CINGESTION, wheezing COMPARISON: 02/18/2023 FINDINGS: 2 views of the chest were performed. The heart size is normal. The mediastinum is within normal limits. There is no acute cardiopulmonary process. Mild scarring is present in the lung bases. There are no pleural effusions. There is no pneumothorax. The bony thorax appears intact. IMPRESSION: No acute cardiopulmonary process. Reviewed, Interpreted and Dictated by Jairo Shah MD Transcribed by Eva Espinoza Authenticated and [facility]
== END ==
PROVIDERS: PCP Nurse Practitioner Family; Visit Provider Nurse Practitioner Family
DX: R09.81 Nasal congestion (principal)
CPT/HCPCS: 71046

== ENCOUNTER → 2023-03-22 07:45 | Outpatient (CLI) | payer BC, SELFPAY ==
[2023-03-22 08:15] VITALS: PULSE 74; PULSE 78
[2023-03-22] MEDS: ALBUTEROL 0.083% 2.5 MG/3 ML NEB IH (08:15)
== END ==
LOC: RT 07:45
PROVIDERS: PCP Nurse Practitioner Family; Visit Provider Nurse Practitioner Family
DX: R05.1 Acute cough (principal)
CPT/HCPCS: 94060; 94640

== ENCOUNTER 2023-08-08 11:48 | Outpatient (CLI) | payer BC, SELFPAY ==
[2023-08-08 12:18] LABS: Basophils # 0.1 K/mm3 (0-0.2); Basophils % 1.1 % (0.1-2.0); Eosinophils # 0.3 K/mm3 (0.0-0.4); Eosinophils % 3.8 % (0.1-12.0); Hematocrit 51.6 % (42.0-52.0); Hemoglobin 16.9 g/dL (14.1-18.0); Lymphocytes # 1.7 K/mm3 (0.7-4.5); Lymphocytes % 24.9 % (10-50); Mean Corpuscular HGB Conc 32.7 g/dL (31.8-35.4); Mean Corpuscular Hemoglobin 30.7 pg (27.0-31.2); Mean Corpuscular Volume 93.9 fl (80-94); Mean Platelet Volume 8.4 fl (7.4-10.4); Monocytes # 0.5 K/mm3 (0.1-1.0); Monocytes % 7.2 % (1.7-9.3); Neutrophils # 4.4 K/mm3 (1.8-7.8); Platelet Count 210 K/mm3 (142-424); Red Blood Count 5.49 M/mm3 (4.60-6.20); Red Cell Distribution Width 14.6 % (11.5-17.5)
[2023-08-08 12:34] LABS: Hemoglobin A1C 6.6 % (4.0-6.0)
[2023-08-08 14:19] LABS: Chloride 106 mmol/L (98-107)
[2023-08-08 14:20] LABS: Potassium 3.9 mmoL/L (3.5-5.1); Sodium 142 mmol/L (136-145)
[2023-08-08 14:22] LABS: Alanine Aminotransferase 29 U/L (12-78); Alkaline Phosphatase 99 U/L (38-126); Anion Gap 7.9 mEq/L (5-15); Aspartate Amino Transferase 30 U/L (17-59); Bilirubin,Total 0.8 mg/dl (0.2-1.3); Blood Urea Nitrogen 15 mg/dl (9-20); Carbon Dioxide 32 mmol/L (22.0-30.0); Cholesterol 128 mg/dl (140-200); Estimated Glomerular Filt Rate 62 ml/min (>60); GFR (African American) 75 ML/MIN (>60); Triglycerides 218 mg/dl (30-150); VLDL Cholesterol 44 mg/dL (0-40)
[2023-08-08 14:23] LABS: Albumin Level 4.2 g/dl (3.5-5.0); Albumin/Globulin Ratio 1.8 (1.1-1.8); Calcium 9.3 mg/dl (8.4-10.2); Chol/HDL Ratio 2.5 (1-3.5); Globulin 2.4 g/dL (1.3-3.2); Glucose 123 mg/dl (74-100); HDL Cholesterol 52 mg/dl (40-60); Total Protein,Serum 6.6 g/dl (6.3-8.2)
[2023-08-08 14:35] LABS: Direct LDL Cholesterol 61.86 mg/dL (100-129)
[2023-08-08 14:56] LABS: Thyroid Stimulating Hormone 0.67 uIU/mL (0.465-4.68)
== END 2023-08-08 23:59 | disposition home or self-care (01) ==
LOC: LAB 11:49
PROVIDERS: PCP Nurse Practitioner Family; Visit Provider Nurse Practitioner Family
DX: E78.2 Mixed hyperlipidemia (principal); I10 Essential (primary) hypertension; E11.40 Type 2 diabetes mellitus with diabetic neuropathy, unspecified; R53.83 Other fatigue; Z79.84 Long term (current) use of oral hypoglycemic drugs
CPT/HCPCS: 36415; 80053; 80061; 83036; 84443; 85025

== ENCOUNTER 2023-08-24 07:45 | Outpatient (CLI) | payer BC, SELFPAY ==
--- NOTE | 2023-08-24 07:51 | CT_ITS ---
FINAL REPORT TECHNIQUE: The patient was injected with IV contrast. Axial images were obtained through the chest in a PE protocol. 3-D reconstruction images were also performed. Individualized dose reduction techniques using automated exposure control or adjustment of the MA and/or KV according to patient's size were employed. CLINICAL HISTORY: THORACIC AORTIC ANEURYSM COMPARISON: 10/25/2022 FINDINGS: Mediastinal vasculature is adequately opacified. No pulmonary artery filling defects are identified to suggest PE. There is abnormal ectasia of the ascending aorta measuring 4.4 x 4.7 cm, stable since previous. There is no axillary adenopathy. There is no hilar or mediastinal adenopathy. The heart size is normal. There is no pericardial or pleural effusion. There is scarring at the bases. The lungs are otherwise clear. Limited images of the upper abdomen reveal benign-appearing cysts in the liver measuring up to 1.2 cm. The spleen, pancreas, and adrenals are unremarkable. IMPRESSION: Stable ascending aortic aneurysm. Reviewed, Interpreted and Dictated by Jairo Shah MD Transcribed by Isi Daugherty Authenticated and [facility] [place] [place]
[2023-08-24] MEDS: 0.9 % SODIUM CHLORIDE 50 ML VIAL IV (08:10)
[2023-08-24] MEDS: IOPAMIDOL-370 (76%);100ML BOTTLE 100 ML IV (08:10)
[2023-08-24] MEDS: SODIUM CHLORIDE 0.9% 10ML SYR (RAD ONLY) 10 ML IV (08:10)
== END 2023-08-24 23:59 | disposition home or self-care (01) ==
LOC: RAD 07:46
PROVIDERS: PCP Nurse Practitioner Family; Visit Provider Nurse Practitioner Family
DX: I71.20 Thoracic aortic aneurysm, without rupture, unspecified (principal)
CPT/HCPCS: 71275; Q9967

== ENCOUNTER 2023-09-26 07:45 | Outpatient (CLI) | payer BC, SELFPAY ==
[2023-09-26 08:20] VITALS: PULSE 73; PULSE 78
[2023-09-26] MEDS: ALBUTEROL 0.083% 2.5 MG/3 ML NEB IH (08:20)
== END 2023-09-26 23:59 | disposition home or self-care (01) ==
LOC: RT 07:47
PROVIDERS: PCP Nurse Practitioner Family; Visit Provider Internal Medicine Pulmonary Disease
DX: R06.09 Other forms of dyspnea (principal); J44.9 Chronic obstructive pulmonary disease, unspecified
CPT/HCPCS: 94060; 94618; 94640; 94726; 94729; J7613

== ENCOUNTER 2023-10-18 14:19 | Outpatient (CLI) | payer BC, SELFPAY ==
[2023-10-18 15:00] LABS: Basophils # 0.1 K/mm3 (0-0.2); Basophils % 1.1 % (0.1-2.0); Eosinophils # 0.5 K/mm3 (0.0-0.4); Eosinophils % 6.8 % (0.1-12.0); Hematocrit 50.5 % (42.0-52.0); Hemoglobin 16.9 g/dL (14.1-18.0); Lymphocytes # 1.6 K/mm3 (0.7-4.5); Mean Corpuscular HGB Conc 33.5 g/dL (31.8-35.4); Mean Corpuscular Hemoglobin 31.4 pg (27.0-31.2); Mean Corpuscular Volume 93.6 fl (80-94); Mean Platelet Volume 8.9 fl (7.4-10.4); Monocytes # 0.5 K/mm3 (0.1-1.0); Platelet Count 223 K/mm3 (142-424); Red Cell Distribution Width 14.3 % (11.5-17.5); White Blood Count 7.7 K/mm3 (4.8-10.8)
[2023-10-23 21:11] LABS: D001-IgE D pteronyssinus <0.10 kU/L (Class 0); D002-IgE D farinae <0.10 kU/L (Class 0); E001-IgE Cat Dander <0.10 kU/L (Class 0); E005-IgE Dog Dander <0.10 kU/L (Class 0); E072-IgE Mouse Urine <0.10 kU/L (Class 0); G002-IgE Bermuda Grass <0.10 kU/L (Class 0); G006-IgE Timothy Grass <0.10 kU/L (Class 0); I006-IgE Cockroach, German 0.35 kU/L (Class I); Immunoglobulin E, Total 79 IU/mL (6-495); M001-IgE Penicillium chrysogen <0.10 kU/L (Class 0); M002-IgE Cladosporium herbarum <0.10 kU/L (Class 0); M003-IgE Aspergillus fumigatus <0.10 kU/L (Class 0); M006-IgE Alternaria alternata <0.10 kU/L (Class 0); T001-IgE Maple/Box Elder <0.10 kU/L (Class 0); T003-IgE Common Silver Birch <0.10 kU/L (Class 0); T006-IgE Cedar, Mountain <0.10 kU/L (Class 0); T007-IgE Oak, White <0.10 kU/L (Class 0); T008-IgE Elm, American <0.10 kU/L (Class 0); T010-IgE Walnut <0.10 kU/L (Class 0); T011-IgE Maple Leaf Sycamore <0.10 kU/L (Class 0); T014-IgE Cottonwood <0.10 kU/L (Class 0); T015-IgE Ash, White <0.10 kU/L (Class 0); T022-IgE Pecan, Hickory <0.10 kU/L (Class 0); T070-IgE White Mulberry <0.10 kU/L (Class 0); W001-IgE Ragweed, Short <0.10 kU/L (Class 0); W011-IgE Thistle, Russian <0.10 kU/L (Class 0); W014-IgE Pigweed, Common <0.10 kU/L (Class 0); W018-IgE Sheep Sorrel <0.10 kU/L (Class 0)
[2023-11-21 15:04] LABS: Antinuclear Antibodies (ANA) NEGATIVE
== END 2023-10-18 23:59 | disposition home or self-care (01) ==
LOC: LAB 14:21
PROVIDERS: PCP Nurse Practitioner Family; Visit Provider Internal Medicine Pulmonary Disease
DX: J30.9 Allergic rhinitis, unspecified (principal); J84.9 Interstitial pulmonary disease, unspecified
CPT/HCPCS: 36415; 82785; 85025; 86003; 86038; 86225; 86235

== ENCOUNTER 2023-11-14 13:48 | Outpatient (CLI) | payer BC, SELFPAY ==
--- NOTE | 2023-11-14 13:49 | CT_ITS ---
FINAL REPORT TECHNIQUE: Thin section axial CT images of the facial bones and sinuses were obtained without contrast. Coronal reformatted images were also obtained.This study was performed with techniques to keep radiation doses as low as reasonably achievable, (ALARA). Individualized dose reduction techniques using automated exposure control or adjustment of mA and/or kV according to the patient''''s size were employed. CLINICAL HISTORY: Nasal congestion FINDINGS: There is total opacification of multiple bilateral ethmoid air cells. There is near-total opacification of the left maxillary sinus and bilateral sphenoid sinuses. There is total opacification of the left frontal sinus. A sizable air-fluid level seen in the right frontal sinus. There is moderate mucosal thickening of the right maxillary sinus. Bilateral ostiomeatal units are obstructed by soft tissue. There is mild leftward nasal septal deviation. No acute bony abnormality is identified. IMPRESSION: Widespread sinusitis with acute right frontal sinusitis. Reviewed, Interpreted and Dictated by Low Robertson III, MD Transcribed by Kath Lorenzo Authenticated and [facility]
== END 2023-11-14 23:59 | disposition home or self-care (01) ==
LOC: RAD 13:49
PROVIDERS: PCP Nurse Practitioner Family; Visit Provider Nurse Practitioner
DX: R09.81 Nasal congestion (principal); J33.9 Nasal polyp, unspecified
CPT/HCPCS: 70486

== ENCOUNTER 2024-01-11 11:57 | Emergency (ER) | payer BC, SELFPAY ==
[2024-01-11 12:09] VITALS: BP 138/90; PULSE 86; RESP 20; TEMP 36.9; O2SAT 96; BMI 32.9
--- NOTE | 2024-01-11 12:12 | ED_ITS ---
Discharge Plan Disposition Patient Disposition: Home, Self-Care Condition: Good Prescriptions Prescriptions: New azithromycin [Zithromax] 250 mg tablet 250 mg PO UD DOSE PK Qty: 6 0RF Rx Instructions: Take two (2) tablets today, then one (1) tablet days #2 thru #5 benzonatate 100 mg capsule 100 mg PO TIDP PRN (Reason: Cough) Qty: 30 0RF methylprednisolone 4 mg Tablets,Dose Pack 4 mg PO DIRECTED 6 Days Qty: 21 0RF Rx Instructions: Take 1 pack as directed for 6 days No Action (DME) blood-glucose meter [Accu-Chek Guide Glucose Meter] Misc See Rx Instructions .Route Rx Instructions: twice daily (DME) Accu-Chek Guide test strips Strip See Rx Instructions .Route Rx Instructions: As directed (DME) pen needle, diabetic [Pen Needle] 32 gauge x 5/32 needle See Rx Instructions .Route Rx Instructions: As directed losartan 50 mg tablet 50 mg PO DAILY Patient Comments: TAKE 1 TABLET BY MOUTH ONCE DAILY furosemide 40 mg tablet 40 mg PO DAILY Patient Comments: TAKE 1 TABLET BY MOUTH ONCE DAILY gabapentin 600 mg tablet 600 mg PO DAILY Patient Comments: TAKE 1 TABLET BY MOUTH 2 TO 3 TIMES DAILY sildenafil 50 mg tablet 50 mg PO DAILY Patient Comments: TAKE 1 TABLET BY MOUTH ONCE DAILY triamterene-hydrochlorothiazid 37.5-25 mg tablet 37.5 tab PO DAILY Patient Comments: TAKE 1 TABLET BY MOUTH ONCE DAILY montelukast 10 mg tablet 10 mg PO DAILY Patient Comments: TAKE 1 TABLET BY MOUTH ONCE DAILY AT BEDTIME azelastine 137 mcg (0.1 %) spray,non-aerosol 137 mcg INTRANASAL DAILY metformin 500 mg tablet extended release 24 hr 500 mg PO DAILY Patient Comments: TAKE 2 TABLETS BY MOUTH AT BEDTIME rosuvastatin 20 mg tablet 20 mg PO DAILY Jardiance 10 mg tablet 10 mg PO DAILY Patient Comments: TAKE 1 TABLET BY MOUTH ONCE DAILY IN THE MORNING Referrals Follow up/Referrals: Kari Gustafson APRN [Primary Care Provider] - See instructions Activity Restrictions/Add. Instructions Additional Instructions/Restrictions: Drink plenty of fluids. Take tylenol or ibuprofen for pain or fever. Take the medications as directed. Follow up with your regular doctor. GO TO THE ER FOR ANY WORSENING SYMPTOMS Clinical Impressions Clinical Impression: Sinusitis, Bronchitis, Acute viral syndrome Stand Alone Forms Stand Alone Forms: Work/School Release Instructions Patient Instructions: Sinusitis, DI for Sinusitis Print Language Print Language: [place] Citizen Discharge ED Provider: Billy Grayson [facility] [place] General Stated complaint: fever, congestion, fatique, cough Mode of Arrival: Ambulatory Source of Information: Patient Time Seen by Provider: 01/11/24 12:11 Description of Symptoms (Recalled from Triage Doc. by RN): BODY ACHES, GREEN DRAINAGE, CONGESTION, COUGH HEENT Symptoms (Recalled from RN notes): Yes Resp Symptoms (Recalled from RN notes): Yes Skin Symptoms (Recalled from RN notes): No MS Symptoms (Recalled from RN notes): No Functional Status (Recalled from RN notes): WNL Related Data Home Medications ?Medication ?Instructions ?Recorded ?Confirmed blood sugar diagnostic (Accu-Chek 11/15/22 11/30/23 Guide test strips) blood-glucose meter (Accu-Chek 11/15/22 11/30/23 Guide Glucose Meter) pen needle, diabetic 32 gauge x 11/15/22 11/30/2332 (Pen Needle) azelastine 137 mcg (0.1 %) nasal 137 mcg intranasal DAILY 01/11/24 01/11/24 spray empagliflozin 10 mg tablet 10 mg PO DAILY 01/11/24 01/11/24 (Jardiance) furosemide 40 mg tablet 40 mg PO DAILY 01/11/24 01/11/24 gabapentin 600 mg tablet 600 mg PO DAILY 01/11/24 01/11/24 losartan 50 mg tablet 50 mg PO DAILY 01/11/24 01/11/24 metformin 500 mg tablet,extended 500 mg PO DAILY 01/11/24 01/11/24 release 24 hr montelukast 10 mg tablet 10 mg PO DAILY 01/11/24 01/11/24 rosuvastatin 20 mg tablet 20 mg PO DAILY 01/11/24 01/11/24 sildenafil 50 mg tablet 50 mg PO DAILY 01/11/24 01/11/24 triamterene 37.5 37.5 tab PO DAILY 01/11/24 01/11/24 mg-hydrochlorothiazide 25 mg tablet Previous Rx's ?Medication ?Instructions ?Recorded azithromycin 250 mg tablet 250 mg PO UD DOSE PK #6 tabs 01/11/24 (Zithromax) benzonatate 100 mg capsule 100 mg PO TIDP PRN Cough #30 caps 01/11/24 methylprednisolone 4 mg tablets in 4 mg PO DIRECTED 6 days #21 tabs 01/11/24 a dose pack Allergies Allergy/AdvReac Type Severity Reaction Status Date / Time No Known Allergies Allergy Verified 11/30/23 14:47 Worker's Comp Is this a Worker's Comp case?: No [facility] Disclaimer: The information contained in this section may have been updated after the patient was seen, as this information can be updated by other users. Medical History (Updated 01/11/24 @ 12:34 by Billy Grayson APRN) Acute frontal sinusitis Ear congestion Nasal congestion Nasal polyp Dyspnea on exertion Pleural thickening Allergic rhinitis Asthma History of 2019 novel coronavirus disease (COVID-19) Edema Diabetes mellitus Intolerance to BiPAP/CPAP Obstructive sleep apnea syndrome Coronary artery calcification seen on CAT scan Mitral valve regurgitation Aortic valvar stenosis SOB (shortness of breath) Chest pain Aortic root enlargement Aortic insufficiency Ascending aorta dilatation HTN (hypertension) Surgical History History of carpal tunnel release of both wrists Family History Other Family history of myocardial infarction Social History Smoking Status: Never smoker second hand exposure: No alcohol intake: current alcohol intake frequency: a few times a week substance use type: denies use current occupational status: employed Travel in the last 8 weeks: None adopted: No caregiver/support person: Yes (SPOUSE) foster care: No household members: spouse and children housing: house lives independently: No (LIVES WITH ) marital status: education level: high school service: No halfway: No current occupation: [employer] current occupational exposures/hazards: No caffeine: Yes ROS Obtained: Yes All systems reviewed & no additional complaints except as documented Constitutional Constitutional: Reports poor appetite Eyes Eyes: Reports system reviewed and no additional complaints, except as documented ENT Ears, Nose, Mouth, and Throat: Reports as per HPI Cardiovascular Cardiovascular: Reports system reviewed and no additional complaints, except as documented and Denies chest pain Respiratory Respiratory: Denies shortness of breath, Reports chest congestion, Reports cough, Denies stridor and Denies wheezing Gastrointestinal Gastrointestingal: Reports system reviewed and no additional complaints, except as documented; Denies abdominal pain, diarrhea or vomiting Musculoskeletal Musculoskeletal: Reports system reviewed and no additional complaints, except as documented and Denies arthralgias Integumentary/Breasts Skin/Breast: Reports system reviewed and no additional complaints, except as documented and Denies rash Neurologic Neurologic: Denies paresthesias Allergic/Immunologic Allergic/Immunologic: Denies wheezing Physical Exam General General appearance: alert and in no apparent distress Eye Eye exam: Present normal appearance, PERRL and EOMI ENT ENT exam: Present mucous membranes moist and normal external ear exam Expanded ENT Exam External ear exam: Present normal external inspection TM/Canal exam: Bilateral TM: erythema and bulging Nose exam: Absent sinus tenderness Nasal speculum exam: Bilateral: normal Mouth exam: Present normal external inspection; Absent drooling Teeth exam: Present normal inspection Throat exam: Present tonsillar erythema and tonsillomegaly Neck Neck exam: Present normal inspection, full ROM and trachea midline; Absent tenderness, lymphadenopathy or thyromegaly Chest Chest inspection: Present normal inspection and symmetric chest wall rise; Absent tenderness or rash Respiratory Respiratory exam: Present normal lung sounds bilaterally; Absent respiratory distress, wheezes, stridor or accessory muscle use Cardiovascular Cardiovascular exam: Present regular rate, normal rhythm and normal heart sounds Abdominal Exam Abdominal exam: Present soft; Absent distention, tenderness, guarding, rebound or rigidity Extremities Exam Extremities exam: Present normal inspection, full ROM and normal capillary refill; Absent tenderness or calf tenderness Back Exam Back exam: Present normal inspection and full ROM; Absent tenderness Neurological Exam Neurological exam: Present alert and oriented X3 Psychiatric Psychiatric exam: Present normal affect and normal mood Skin Skin exam: Present warm, dry, intact and normal color Lymphatic Lymphatic Findings: no adenopathy Medical Decision Making Medical Records Medical records reviewed: No I reviewed the patient's medical records. Screening: Per USPSTF and CDC recommendations, given the prevalence of disease in our region, it is our hospital?s policy to screen for HIV and viral Hepatitis for all patients aged 18 and over and those with ongoing risk factors. Andrey Inquiry Pt receiving controlled substance: No Vital Signs: 01/11/24 12:09 Temperature 98.5 F Temperature Source Oral Pulse Rate [Left Radial] 86 Respiratory Rate 20 Blood Pressure [Left Arm] 138/90 Blood Pressure Mean [Left Arm] 106 02 Sat by Pulse Oximetry 96 Lab Data Lab results reviewed: Yes I reviewed the patient's lab results.
[2024-01-11 12:25] LABS: UTC Influenza A Antigen Negative (Negative); UTC Influenza B Antigen Negative (Negative)
[2024-01-11 12:41] VITALS: BP 138/90; PULSE 86; RESP 20; TEMP 36.9
== END 2024-01-11 12:42 | disposition home or self-care (01) ==
PROVIDERS: Emergency Provider Nurse Practitioner Family; PCP Nurse Practitioner Family
DX: J01.90 Acute sinusitis, unspecified (principal); J40 Bronchitis, not specified as acute or chronic; B34.9 Viral infection, unspecified
CPT/HCPCS: 87635; 87804; 99213; G0381

== ENCOUNTER 2024-03-05 14:31 | Outpatient (CLI) | payer BC, SELFPAY ==
--- NOTE | 2024-03-05 14:40 | ECG_ITS ---
APPROVED REPORT Exam: Resting ECG HR:78 bpm ECG Measurements Heart Rate 78 AXES TN 176 P 50 QRSd 109 QRS 76 QT 394 T 56 QTc 427 Conclusion SINUS RHYTHM Isolated Q in III ABNORMAL ECG UNCONFIRMED REPORT Electronically signed by : Maykel Garcia MD 03/06/2024 08:45:27
[2024-03-05 15:06] LABS: Basophils % 0.5 % (0.1-2.0); Eosinophils # 0.1 K/mm3 (0.0-0.4); Eosinophils % 1.2 % (0.1-12.0); Hematocrit 48.8 % (42.0-52.0); Hemoglobin 16.2 g/dL (14.1-18.0); Lymphocytes # 1.1 K/mm3 (0.7-4.5); Lymphocytes % 13.3 % (10-50); Mean Corpuscular HGB Conc 33.3 g/dL (31.8-35.4); Mean Corpuscular Hemoglobin 29.4 pg (27.0-31.2); Mean Corpuscular Volume 88.4 fl (80-94); Mean Platelet Volume 8.5 fl (7.4-10.4); Monocytes # 0.3 K/mm3 (0.1-1.0); Monocytes % 3.5 % (1.7-9.3); Neutrophils # 6.9 K/mm3 (1.8-7.8); Neutrophils % 81.4 % (37.0-80.0); Platelet Count 277 K/mm3 (142-424); Red Blood Count 5.52 M/mm3 (4.60-6.20); Red Cell Distribution Width 13.8 % (11.5-17.5); White Blood Count 8.5 K/mm3 (4.8-10.8)
[2024-03-05 15:42] LABS: Albumin Level 4.4 g/dl (3.5-5.0); Chloride 106 mmol/L (98-107); Potassium 3.7 mmoL/L (3.5-5.1); Sodium 139 mmol/L (136-145)
[2024-03-05 15:44] LABS: Blood Urea Nitrogen 20 mg/dl (9-20); Estimated Glomerular Filt Rate 48 ml/min (>60); GFR (African American) 58 ML/MIN (>60)
[2024-03-05 15:45] LABS: Alanine Aminotransferase 27 U/L (12-78); Albumin/Globulin Ratio 1.9 (1.1-1.8); Alkaline Phosphatase 84 U/L (38-126); Anion Gap 13.7 mEq/L (5-15); Aspartate Amino Transferase 31 U/L (17-59); Bilirubin,Total 0.5 mg/dl (0.2-1.3); Calcium 9.4 mg/dl (8.4-10.2); Carbon Dioxide 23 mmol/L (22.0-30.0); Globulin 2.3 g/dL (1.3-3.2); Glucose 196 mg/dl (74-100); Total Protein,Serum 6.7 g/dl (6.3-8.2)
== END 2024-03-05 23:59 | disposition home or self-care (01) ==
LOC: LAB 14:32
PROVIDERS: PCP Nurse Practitioner Family; Visit Provider Otolaryngology
DX: Z01.812 Encounter for preprocedural laboratory examination (principal); Z01.818 Encounter for other preprocedural examination
CPT/HCPCS: 36415; 80053; 85025; 93005

== ENCOUNTER 2025-03-12 15:07 | Outpatient (CLI) | payer BC, SELFPAY ==
--- NOTE | 2025-03-12 15:09 | XR_ITS ---
FINAL REPORT CLINICAL HISTORY: cough, chest congestion x 3-4 weeks FINDINGS: CHEST 2 VIEWS PA AND LATERAL The heart is normal in size. The mediastinum is unremarkable. The lungs are clear. Bilateral nipple shadows are identified. There is no pneumothorax. IMPRESSION: No acute process. Reviewed, Interpreted and Dictated by Jairo Shah MD Transcribed by Isi Daugherty Authenticated and [facility]
== END 2025-03-12 23:59 | disposition home or self-care (01) ==
LOC: RAD 15:07
PROVIDERS: PCP Nurse Practitioner Family; Visit Provider Student in an Organized Health Care Education/Training Program
DX: R05.9 Cough, unspecified (principal); R09.89 Other specified symptoms and signs involving the circulatory and respiratory systems
CPT/HCPCS: 71046